=== PATIENT | male | born 1940 | race Caucasian/White ===

== ENCOUNTER 2024-01-11 11:51 | Emergency (ER) | payer MEDICARE, OTHER, SELFPAY ==
[2024-01-11 12:13] VITALS: BP 147/66; PULSE 73; RESP 18; TEMP 36.8; O2SAT 99; BMI 24.7
--- NOTE | 2024-01-11 12:13 | ED_ITS ---
HPI - General Adult General Chief complaint: Urogenital-Male Stated complaint: BLANCAS CATH INFECTION Time Seen by Provider: 01/11/24 12:12 Source: patient and EMS Mode of arrival: EMS Limitations: other (patient has a history of dementia) History of Present Illness ED Provider: Kelly Quintanilla PA-C HPI narrative: Patient is an 83 year old assigned male at with a history of BPH (with blancas catheter in place), and dementia, presenting to the emergency department today with a stuck retracted foreskin. [facility] staff states that over the last 2 days the patient's penile foreskin has been stuck in the retracted position and they have not been able to unretract it. Patient denies any dizziness, lightheadedness, abdominal pain, nausea, vomiting, fever, chills, blurry vision, double vision, loss of vision, chest pain, difficulty breathing, shortness of breath, back pain, night sweats, pain with urination, increased urinary frequency, increased urinary urgency, blood in his urine or stool, syncope or a near syncopal episode, recent trauma or falls, bowel incontinence, bladder incontinence, or any other complaints at this time. Onset (ago): day(s) (2) Relieving factors: none Exacerbating factors: none Associated symptoms: denies other symptoms Treatments prior to arrival: none Related Data Allergies Allergy/AdvReac Type Severity Reaction Status Date / Time No Known Allergies Allergy Verified 01/11/24 12:15 Review of Systems 2 Constitutional: Constitutional: Reports no additional constitutional complaints, Denies chills, Denies fever(s) and Denies night sweats Eyes: Eyes: Reports no additional eye complaints, Denies blurry vision, Denies change in vision, Denies diplopia, Denies eye discharge, Denies loss of vision and Denies eye pain ENT: Denies dizziness Cardiovascular: Cardiovascular: Reports no additional cardiovascular complaints, Denies chest pain, Denies lightheadedness, Denies Loss of Consciousness and Denies dyspnea Respiratory: Respiratory: Reports no additional respiratory complaints and Denies dyspnea Gastrointestinal: Gastrointestinal: Reports no additional gastrointestinal complaints, Denies abdominal pain, Denies melena, Denies hematochezia, Denies change in bowel habits and Denies change in stool character Genitourinary: Genitourinary: Reports no additional male genitourinary complaints Comments: blancas catheter, penile swelling Musculoskeletal: Musculoskeletal: Reports no additional musculoskeletal complaints, Denies numbness and Denies tingling Neurologic: Denies dizziness, Denies loss of vision, Denies numbness and Denies tingling Psychiatric: Psychiatric: Reports no additional psychiatric complaints Endocrine: Endocrine: Reports no additional endocrine complaints Hematologic/Lymphatic: Hematologic/Lymphatic: Reports no additional hematologic/lymphatic complaints Allergic/Immunologic: Allergic/Immunologic: Reports no additional allergic/immunologic complaints PMFSH Past Medical History Attestation statement: The following information was validated with the patient. (all information validated with the patient's daughter) Source: old records reviewed, obtained from family (patient's daughter provided additional history and confirmed the history provided by the patient), nursing notes reviewed and other ([facility] staff provided additional history and confirmed the history provided by the patient) Social History Social History Advance Directives: Yes Advance Directives Information Provided: Yes Advance Directives on File: No Physical Exam ED Vital Signs: Vital Signs - 24 hr 01/11/24 12:13 Temperature 98.3 F Pulse Rate 73 Respiratory Rate 18 Blood Pressure 147/66 H Pulse Oximetry 99 Oxygen Delivery Method Room Air BMI result Body Mass Index 24.7 Const General: cooperative, no acute distress, alert and awake Nutritional Appearance: well nourished Orientation/consciousness: oriented to person and oriented to place Limitations: no limitations HENMT Head: Yes normal to inspection and Yes atraumatic Ears: hearing grossly normal bilaterally and external ears normal General nose exam: Normal external nose present, no nasal discharge noted and no epistaxis Face and sinus: Yes normal facial exam, No abrasion and No laceration Mouth: Normal oral and palatal mucosa present, no drooling and no muffled voice Eyes General: appearance normal, both eyes and all related structures Periorbital: periorbital findings normal Eyelids: Yes eyelids normal Conjunctivae: conjunctivae normal Pupils: Equal, round and reactive pupils present EOM: EOMs intact bilaterally Neck Neck: Yes normal visual inspection, Yes full ROM and Yes no lymphadenopathy Chest Chest palpation & inspection: normal inspection of the chest Resp Effort & Inspection: normal respiratory effort and able to speak in complete sentences GI Inspection: Yes normal to inspection Other: Neuro General: oriented to person, oriented to place and moves all extremities Cranial nerves: Yes Equal, round and reactive pupils present Cognition (Neuro): normal cognition Extrem General: Yes normal to inspection, Yes full ROM and Yes capillary refill normal Psych Appearance: grossly normal Mental Status: mental status grossly normal Affect: normal affect Attitude: cooperative Thought process: Normal thought process present Thought content: Normal thought content present Insight: Good insight present (Psych) Medical Decision Making Medical Decision Making MDM Narrative: Patient is an 83 year old assigned male at with a history of BPH and dementia, presenting to the emergency department today with penile swelling. Patient's physical exam was as noted in the physical exam portion of this note. I explained my physical exam findings to the patient and the patient's daughter. I answered all questions asked by the patient and the patient's daughter. Dr. Nair evaluated the patient and was able to unretract the penile foreskin, without incident. I stressed the importance of the patient taking his medication as directed (either prescribed or as the over the counter packaging recommends). I stressed the importance of the patient following up with his primary care provider. I stressed the importance of the patient returning to the emergency department immediately if his symptoms were to return or if he were to develop any dizziness, shortness of breath, difficulty breathing, chest pain, blurry vision, loss of vision, nausea, vomiting, abdominal pain, fever, chills, back pain, or any other complaints. Patient and the patient's daughter verbalized agreement and understanding with this treatment plan and discharge. Differential Diagnosis Differential Diagnoses: The differential diagnosis associated with the presentation includes Paraphimosis Admission/Observation Consideration of admission/observation: Escalation of care including admission/observation considered Patient would have been admitted to the hospital had his clinical presentation warranted hospital admission. Consult Healthcare Provider Management of the patient was discussed with: [employer] (spoke to the urologist president educational institution as noted in the MDM Rationale portion of this note.) Independent Historian Clinical information obtained from an independent historian. History obtained from or confirmed by: EMS (EMS provided additional history and confirmed the history provided by the patient.) and Other (Patient's daughter provided additional history and confirmed the history provided by the patient.) Discharge Plan Discharge Clinical Impression: Paraphimosis Patient Disposition: Home, Self-Care Instructions: Acute Paraphimosis (ED) Additional Instructions: Your care staff must unretract/replace your foreskin when cleaning / changing your blancas. Follow up with your primary care provider. Return to the emergency department immediately if your symptoms worsen or if you develop any dizziness, shortness of breath, difficulty breathing, chest pain, blurry vision, loss of vision, nausea, vomiting, abdominal pain, fever, chills, back pain, or any other complaints. Referrals: Nilton Spears MD [Primary Care Provider] - Print Language: Indian
[2024-01-11 12:32] VITALS: BP 124/70; PULSE 63; O2SAT 100
[2024-01-11] MEDS: Lidocaine HCl 1 % MPF 5 ML VIAL 20 ML SUBCUT (13:37)
[2024-01-11 16:39] VITALS: BP 138/61; PULSE 80; RESP 18; TEMP 36.8; O2SAT 95
[2024-01-11 17:20] VITALS: BP 138/61; PULSE 80; RESP 18; TEMP 36.8; O2SAT 95
--- NOTE | 2024-01-11 20:17 | P.CNUR_ITS ---
History of Present Illness Consult details Consult date: 01/11/24 Narrative: Called to evaluate due to paraphimosis. Pt has pérez in place Review of Systems Review of Systems: Yes all other systems are reviewed and are negative Constitutional: Constitutional: Reports no additional constitutional complaints Eyes: Eyes: Reports no additional eye complaints ENT: Reports system reviewed and no additional complaints, except as documented Cardiovascular: Cardiovascular: Reports no additional cardiovascular complaints Respiratory: Respiratory: Reports no additional respiratory complaints Gastrointestinal: Gastrointestinal: Reports no additional gastrointestinal complaints Genitourinary: Genitourinary: Reports as per HPI Musculoskeletal: Musculoskeletal: Reports no additional musculoskeletal compla ints Integumentary/Breasts: Skin/Breast: Reports system reviewed and no additional complaints, except as docu Neurologic: Reports system reviewed and no additional complaints, except as documented Psychiatric: Psychiatric: Reports no additional psychiatric complaints Endocrine: Endocrine: Reports no additional endocrine complaints Hematologic/Lymphatic: Hematologic/Lymphatic: Reports no additional hematologic/lymphatic complaints Allergic/Immunologic: Allergic/Immunologic: Reports no additional allergic/immunologic complaints Meds Allergies Allergy/AdvReac Type Severity Reaction Status Date / Time No Known Allergies Allergy Verified 01/11/24 12:15 Physical Exam Vital Signs: Vital Signs: Last Vital Signs Temp 98.2 F 01/11/24 17:20 Pulse 80 01/11/24 17:20 Resp 18 01/11/24 17:20 BP 138/61 01/11/24 17:20 Pulse Ox 95 01/11/24 17:20 O2 Del Method Room Air 01/11/24 17:20 BMI result Body Mass Index 24.7 Const: General: no acute distress and well developed Orientation/consciousness: patient oriented x3 HEENT: Head: Yes normocephalic and Yes atraumatic Eyes: Conjunctivae: conjunctivae normal Neck: Neck: Yes normal visual inspection Chest: Chest palpation & inspection: normal inspection of the chest Resp: Effort & Inspection: normal respiratory effort Cardio: Rate: regular rate GI: Inspection: Yes normal to inspection Palpation (GI): Soft to palpation : Penis: uncircumcised and paraphimosis Scrotum: scrotum normal Neuro: General: patient oriented x3 Psych: Appearance: grossly normal Affect: normal affect Results Labs Labs: All other labs normal. Assessment and Plan (1) Chronic indwelling Pérez catheter: Status: Acute (2) Urinary retention: Status: Acute (3) Dementia: Status: Acute (4) Paraphimosis: Status: Inactive (5) Redundant foreskin: Status: Acute Plan Cont pérez Paraphimosis reduced Procedures Date of Service Date of Service: 01/11/24 Penile Procedure Time out performed: Yes Indication: paraphimosis Local anesthesia used: penile nerve block Amount of anesthesia used (ml): 15 Reduction of paraphimosis: manual pressure Patient tolerated procedure: well and no complications
== END 2024-01-11 17:20 | disposition home or self-care (01) ==
PROVIDERS: Emergency Provider Student in an Organized Health Care Education/Training Program; PCP Family Medicine
DX: N47.2 Paraphimosis (principal); Z96.0 Presence of urogenital implants
CPT/HCPCS: 96372; 99282; 99284

== ENCOUNTER → 2024-01-11 12:28 | Outpatient (BNV) | payer MEDICARE, OTHER, SELFPAY | PROVIDERS: Emergency Provider Student in an Organized Health Care Education/Training Program; PCP Family Medicine; Visit Provider Urology | DX: N47.2 Paraphimosis (principal); R33.9 Retention of urine, unspecified; Z96.0 Presence of urogenital implants; F03.90 Unspecified dementia, unspecified severity, without behavioral disturbance, psychotic disturbance, mood disturbance, and anxiety | CPT/HCPCS: 54450; 99282 ==

== ENCOUNTER 2024-04-30 10:36 | Outpatient (REF) | payer MEDICARE, OTHER, SELFPAY ==
--- NOTE | ~2024-04-30 | FL_ITS ---
EXAMINATION: Modified Barium Swallow CLINICAL INFORMATION: Dysphagia COMPARISON: None TECHNIQUE: Modified barium swallow was performed under lateral fluoroscopy with patient in standing position. Barium mixed with solids and liquids of different consistencies was administered by the speech pathologist. Examination was recorded in the fluoroscopy suite. FINDINGS: Laryngeal penetration was seen with multiple consistencies of barium. No tracheal aspiration observed. Please refer to speech therapy report for further details. Mild cricopharyngeal achalasia is present. FLUOROSCOPY TIME: 2 minutes 26 seconds Number of Spot Images: N/A DOSE AREA PRODUCT: 1195 uGy-m2 (microgray-meter squared) FL/FL Modified Barium Swallow IMPRESSION: 1. Laryngeal penetration with multiple consistencies of barium. No subglottic aspiration was observed. 2. Mild cricopharyngeal achalasia. Refer to the speech therapy report for further clarification This procedure was performed by Mehdi Myles PA-C, and supervised by Dr. Reynolds Electronically signed by: David Reynolds MD 04/30/2024 04:16 PM [facility] [place]
--- NOTE | 2024-05-05 15:13 | MHC.SL.IMP ---
Date of Plan of Treatment: 04/30/24 Onset of Symptoms/Illness: 04/08/24 Date Treatment Started: 04/30/24 Admitting Diagnosis: R/o aspiration Primary Speech & Language Diagnosis: R13.12 Oropharyngeal Phase Dysphagia Reason for Today's Visit: R/o aspiration Pre-evaluation Dietary Consistencies: Regular Pre-evaluation Liquid Consistency: Thin Pre-evaluation Medication Administration: Crushed with Puree Medical History: Anemia CKD Dysphagia, Pharyngeal phase GERD MDD Weakness Obstructive and reflux uropathy Anxiety Difficulty walking Hypothyroidism MCI Assistance with ADLs Afib Oral Motor Exam Facial Symmetry: Normal for Patient Symmetrical Oral Expression Ability: Moderate Impairment Is patient able to manage secretions?: Yes Is patient able to produce volitional cough?: Yes Food and Liquid Trials: Oral Impairment: Lip Closure: Did not test Oral Impairment: Tongue Control During Bolus Hold: 1=Escape to lateral buccal cavity/floor of mouth (FOM) Oral Impairment: Bolus Preparation/Mastication: 1=Slow prolonged chewing/mashing with complete re-collection Oral Impairment: Bolus Transport/Lingual Motion: 2=Slowed tongue motion Oral Impairment: Oral Residue: 2=Residue collection on oral structures Oral Impairment:Initiation of Pharyngeal Swallow: 0=Bolus head at posterior angle of ramus (first hyoid excursion) Pharyngeal Impairment: Soft Palate Elevation: 1=Trace column of contrast or air between SP and PW Pharyngeal Impairment: Laryngeal Elevation: 1=Partial thyroid cartilage/arytenoids to epiglottic petiole movement Pharyngeal Impairment: Anterior Hyoid Excursion: 1=Partial anterior movement Pharyngeal Impairment: Epiglottic Movement: 0=Complete inversion Pharyngeal Impairment: Laryngeal Vestibular Closure:: 1=Incomplete: narrow column air/contrast in laryngeal vestibule Pharyngeal Impairment: Pharyngeal Stripping Wave: 0=Present: complete Pharyngeal Impairment: Pharyngeal Contraction: Did not test Pharyngeal Impairment: Pharyngoesophageal Segment Openin=Partial distention/partial duration: partial obstruction of flow Pharyngeal Impairment: Tongue Base (TB) Retraction: 2=Narrow column of contrast/air between TB and posterior PW Pharyngeal Impairment: Pharyngeal Residue: 2=Collection of residue within or on pharyngeal structures Pharyngeal Impairment: Esophageal Clearance Upright Position: Did not test Impressions and Recommendations Clinical Observations: Time-out: performed at 10:30 Evaluation Start: 10:35; Stop: 10:55 Patient Positioning: Seated 70-90 degrees Viewing Planes: LATERAL ONLY Contrast: MBSImP? Standardized Protocol using commercially prepared, standardized Barium viscosities, including: Varibar? THIN LIQUID (40% w/v, <15 cps) , Varibar? PUDDING (40% w/v, <3925-3456 cps) , 1/2 Shortbread Cookie (1 x1 x.25 ) [facility] ID: [id number] [facility] Results: Lip closure for intraoral bolus containment could not be assessed due to logistical reasons not related to physiologic impairment. Tongue control during bolus hold maintained a cohesive bolus held between tongue to palate seal. Bolus preparation and mastication resulted in slow, prolonged chewing/mashing but with complete re-collection. Bolus transport/lingual motion demonstrated delayed initiation of tongue motion. Oral residue was a collection on oral structures. Initiation of the pharyngeal swallow occurred as the bolus head was at the posterior laryngeal surface of the epiglottis. Soft palate elevation resulted in no bolus between the soft palate and the pharyngeal wall. Laryngeal elevation was decreased, with partial superior movement of the thyroid cartilage/partial approximation of the arytenoids to the epiglottic petiole. Anterior hyoid excursion demonstrated partial anterior movement. Epiglottic movement resulted in complete inversion. Laryngeal vestibular closure was incomplete, with a narrow column of air/contrast noted within the laryngeal vestibule at the height of the swallow. Pharyngeal stripping wave was present and complete. Pharyngeal contraction could not be determined due to logistical reasons not related to physiologic impairment. Pharyngoesophageal segment opening demonstrated partial distension/partial duration, with partial obstruction of bolus flow. Tongue base retraction allowed a narrow column of contrast or air between the retracted tongue base and the posterior pharyngeal wall. Pharyngeal residue was a collection of residue within or on pharyngeal structures. Esophageal clearance in the upright position could not be assessed due to logistical reasons not related to physiologic impairment. Oral Impairment Score: 6 (absence of score, component 1) Pharyngeal Impairment Score: 8 (absence of score, component 13) Esophageal Impairment Score: --- (absence of score, component 17) Laryngeal Penetration and Aspiration: Penetration was observed in today's study. Cookie, [place]-thick, Thin Contrast entered the airway, contacted the vocal folds, and were ejected from the airway. Thin Contrast entered the airway, contacted the vocal folds, and was not ejected from the airway. ASSESSMENT: The patient's performance in today's study indicated impairment in swallowing as outlined in the table below: Laryngeal elevation, Epiglottic movement, Laryngeal vestibular closure, and Tongue base retraction contributed to penetration and pharyngeal residue. SUMMARY: Pt demonstrated a consistent pattern of coating along the anterior laryngeal vestibule. The coating was not removed spontaneously by secondary swallow or reflexive cough. When FLOOR WORKER cued to clear his throat, this removed contrast from the airway. [place]-Thick Liquids made the coating mildly worse, but was clear with throat clear. Chin tuck was mild successful in reducing penetration, however he still needed to be cued to clear his throat. Regular solid (cookie coated in contrast) resulted in significant oral residue in the vallecular space that subsequently resulted in laryngeal coating needing cues to clear. PLAN: Intake Recommendations: Route: PO Diet Grade: IDDSI Levels: 6-Soft & Bite-Sized Liquid Consistencies: IDDSI Levels: 0-Thin Post-Study Functional Oral Intake Scale (FOIS): 6- Total oral intake with no special preparation, but must avoid specific foods or liquid items Recommendations: Recommend Pt work with his in-house FLOOR WORKER to adjusted Solid foods accordingly based on the availability in the cafeteria. A texture consistent with IDDSI Level 6 ? Soft & Bite-Sized would be appropriate based on today?s results. Use of [place]-Thick Liquids or Chin Tuck did not reduce his anterior laryngeal vestibular coating. Only throat clearing after sips of liquids were successful. Therapy Recommendations: Therapy will be continued The following compensatory strategies and/or therapeutic exercises will be part of the upcoming therapy/management plan: Throat Clear No Straws Effortful Swallow Prognosis for Improvement: The prognosis for the patient to meet nutritional needs by mouth is good based on degree of impairment, stimulability for treatment, level of motivation, support system. Patient's Personal Goals: Safest, least restrictive diet. Penitentiary Goals: ? The patient will tolerate the least restrictive diet with a safe/efficient swallow to maintain adequate nutrition and hydration. ? The patient will demonstrate improved swallowing function via repeat clinical evaluation, videoendoscopy/videofluoroscopy and/or patient self-rating scores. ? The patient and/or family will participate in further education for swallowing goals. Short Term Goals: ? Diet - The patient will tolerate a regular diet with thin liquids, full liquids without signs or symptoms of penetration/aspiration 90% of the time. ? Guidelines - The patient will comply with/recall the following guidelines/strategies 90% of the time with moderate cuing: Bolus Volume Change, Rate of Ingestion Change, Additional Swallow(s) per Bolus, Throat Clear, No Straws. ? Independent Home Exercise ? Structured Therapy - The patient will demonstrate 90% accuracy and require moderate cuing in structured swallowing therapy with the FLOOR WORKER using the following exercises/therapy approaches and therapy assisted devices: Effortful Swallow, . ? Education - The patient, family, caregiver will verbalize/demonstrate understanding of the results of this evaluation, the above recommendations, and the swallowing guidelines. Liquid Intake Recommendation: Thin Liquid Intake Strategies: Small Sips No Straws Double Swallow Dietary Recommendations: Chopped/Advanced (NDD3) Medication Administration: Whole with Puree Please contact the pharmacy regarding appropriate crushable or liquid drug formulations that are available whenever modified delivery is recommended. Compensatory Strategies Recommended: Sitting Upright (90 deg) No Straw Small Bites and Sips Alternate Liquids/Solids Supervision during eating and or drinking: Total Supervision (1:1) Recommended Treatments: Oral Motor Exercises Compens. Strategy Educat. Recommendation for Speech Therapy: Speech Therapy through Rehab Facility Text Comment: It is important to note MBSS objective studies are snapshots in time and Patient function might vary with factors such as time of day or concomitant medical conditions. For this reason, the final treatment plan for this patient should rest with their medical care team. Additional recommendations should be considered with the totality of the Patient in mind. Thank for the opportunity to participate in the care of this patient. If you have any questions about the content of this report, please contact the [facility] at [facility]. Education: Education regarding findings from today's study and plans for therapy were provided to Patient and family/caregiver through Verbal Instruction, Written Instruction. Understanding was expressed by the Patient and family/caregiver. Frequency/Duration: At the discretion of his treating FLOOR WORKER. Timeline to reassess: PRN Revenue Collector Clinician/Clinical Fellow: No Supervisory Statement: N/A Speech Language Pathologist: Aurelio Dalal M.A., [facility]-FLOOR WORKER
== END 2024-04-30 10:37 | disposition home or self-care (01) ==
LOC: HO.XRAY 10:36
PROVIDERS: Visit Provider Internal Medicine
DX: Z13.89 Encounter for screening for other disorder (principal)
CPT/HCPCS: 74230

== ENCOUNTER → 2024-04-30 10:39 | Outpatient (BNV) | payer MEDICARE, OTHER, SELFPAY | PROVIDERS: Visit Provider Physician Assistant Surgical | DX: R13.10 Dysphagia, unspecified (principal) | CPT/HCPCS: 74230 ==

== ENCOUNTER 2025-03-03 08:08 | Emergency (ER) | payer MEDICARE, OTHER, SELFPAY ==
[2025-03-03 08:14] VITALS: BP 120/68; PULSE 83; O2SAT 98
[2025-03-03 08:29] VITALS: BP 135/63; PULSE 100; RESP 20; TEMP 36.7; O2SAT 95; BMI 23.9
--- NOTE | 2025-03-03 08:53 | ED_ITS ---
HPI - Male Genitourinary General Chief complaint: Urogenital-Male Stated complaint: FORESKIN PAIN AND SWELLING Source: patient, family and EMS Mode of arrival: EMS Limitations: other (poor historian) History of Present Illness ED Provider: JULIO HICKS Narrative: 84 yo male with PMH of CKD, anemia, ataxia, afib, dementia, PAD, UTI, chronic indwelling pérez catheter he is DNR/DNI, do not transfer unless for comfort who had his pérez changed at 1230am unclear why and they RN did not retract his foreskin over the glans after procedure. Now the glans is swollen. He is still draining urine. He states it irritates him a little but otherwise no sig pain. This has happened before at [facility]. MD Complaint: other Onset (ago): hour(s) (1230am today) Duration: improved Location: penis Radiation: penis Severity: mild Quality: dull Relieving factors: none Exacerbating factors: none Context: other Associated symptoms: Reports denies other symptoms Related Data Allergies Allergy/AdvReac Type Severity Reaction Status Date / Time No Known Allergies Allergy Verified 03/03/25 08:32 Review of Systems Review of Systems: ROS unable to be obtained due to altered mental status PMFSH Past Medical History Attestation statement: The following information was validated with the patient. Source: old records reviewed Medical History Afib Redundant foreskin Chronic indwelling Pérez catheter Social History Social History (Updated 03/03/25 @ 09:13 by Michelle Moran DO) Patient Tobacco Use Status: Tobacco use Unknown Physical Exam Vital Signs: Vital Signs: Last Vital Signs Temp 98.1 F 03/03/25 08:29 Pulse 100 03/03/25 08:29 Resp 20 03/03/25 08:29 BP 135/63 03/03/25 08:29 Pulse Ox 95 03/03/25 08:29 O2 Del Method Room Air 03/03/25 08:29 BMI result Body Mass Index 23.9 Appearance: Alert. Oriented X to person and place. No acute distress. Eyes: Pupils equal, round and reactive to light. ENT: Pharynx normal. Neck: Normal inspection. Neck supple. CVS: Normal heart rate and rhythm. Pulses normal. Respiratory: No respiratory distress. Breath sounds normal. Abdomen: Soft and nontender. : foreskin retracted, gland swollen, clear yellow urine noted in tubing Skin: Skin warm and dry. Normal skin color. Extremities: No lower extremity edema. Neuro: Oriented X 2. No motor deficit. Medical Decision Making Medical Decision Making [facility] Narrative: 76 yo male with PMH of HTN, afib, HLD, DM2, afib on xarelto here with c/o pérez placed 1230am but they never retracted the foreskin at this time Dr. Barron happened to be in the ED he was able to reduce the phimosis - recheck reassuring, clear yellow urine, no issues, stable for DC. updated Migdalia his HCP Differential Diagnosis Differential Diagnoses: The differential diagnosis associated with the presentation includes phimosis Admission/Observation Consideration of admission/observation: Escalation of care including admission/observation considered retracted by Dr. Barron Urology at bedside recheck normal no acute issues Consult Healthcare Provider Management of the patient was discussed with: Radiologic Technologist Chief Independent Historian Clinical information obtained from an independent historian. History obtained from or confirmed by: EMS External Record Review External record reviewed: Outpatient record Discharge Plan Discharge Clinical Impression: Phimosis of penis Patient Disposition: Home, Self-Care Instructions: Phimosis (ED) Additional Instructions: foreskin retracted by our Urologist no issues please monitor for increased swelling, redness, bleeding, unable to urinate notified HCP Migdalia of visit and plan Print Language: [place]
[2025-03-03 10:00] VITALS: BP 110/77; PULSE 79; TEMP 36.9; O2SAT 95
--- OUTSIDE RECORDS SUMMARY | 2025-03-03 10:22 | XMS_ITS | Encounter Summary ---
Author Organization [facility] Address [address] [place] [address] Phone Care Team Providers Care Finishing Inspector Name Role Phone Ashely Tovar MD Primary Care Provider [phone] Ashely Tovar MD Unavailable [phone] Jose Schulte OT Unavailable Rosamaria Gunderson MD Unavailable [phone] Cedrick Giles DO Unavailable Nirav Razo MD Primary Care Provider Alexus Gandhi Primary Care Provider [phone] Alexus Gandhi Unavailable [phone] Brissa Díaz OT Unavailable [phone] Rosamaria Gunderson MD Unavailable [phone] Encounter Details Date Type Department Care Team (Late st Contact Info) Description 09/23/2020 Procedure Pass [facility], Ct Scan - [address] [address] Social History Tobacco Use Types Packs/Day Years Used Date Smoking Tobacco: Never Smokeless Tobacco: Never Alcohol Use Standard Drinks/Week Comments Yes 2 (1 standard drink = 0.6 oz pur e alcohol) even less now Sex and Gender Information Value Date Recorded Sex Assigned at Male 07/09/2020 3:06 PM EST Legal Sex Male 7:14 PM EST Gender Identity Male 07/09/2020 3:06 PM EST Sexual Orientation Not on file 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 Date 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 Not on file Not on file No t on file documented as of this encounter Plan of Treatment Not on file documented as of this encounter Visit Diagnoses Not on filedocumented in this encounter Additional Health Concerns Infection Onset Date Last Indicated Resolved Time CoV-Risk Comment:Per note documentation 12/22/2023 12/22/2023 12:38 PM EDT Assessment Noted Time PHQ-2 Depression Total Score: 5 08/19/19 19 1:39 PM EST documented as of this encounter Care Teams Finishing Inspector Relationship Specialty Start Date End Date Ashely Tovar MD [email or web address] PCP - General Family Medicine 08/19/18 09/12/22 Nirav Razo MD [address] [place] [address], [facility] [address] [place] [address] [email or web address] PCP - General Family Medicine 09/13/22 04/26/23 Alexus Gandhi [address] [place] [address], [address] [place] [address] [email or web address] PCP - General Family Medicine 04/27/23 Ashely Tovar MD [address] [place] [address] [email or web address] Insurance Assigned Provider 10/01/19 09/02/22 Jose Schulte, OT [address] [place] [address] [email or web address] Transitions Second CutterNuclear Medicine Tech Therapy 09/22/2009/26/20 Rosamaria Gunderson MD [address] [place] [address] [email or web address] Consulting Provider Geriatric Medicine 12/29/21 Cedrick Giles DO [address] [place] [address], [address] [place] [address] Insurance Assigned Provider 09/02/22 09/29/23 Alexus Gandhi [address] [facility], [address] [place] [address] [email or web address] Insurance Assigned Provider 09/29/23 Brissa Díaz, OT [address] [place] [address] [email or web address] Transitions Second CutterNuclear Medicine Tech Therapy 12/24/2301/30/24 Rosamaria Gunderson MD [address] [place] [address] Geriatric Medicine 04/28/24 documented as of this encounter Additional Source Comments The information contained in this document represents components of the legal health record. It is not the complete legal health record.[facility]
--- OUTSIDE RECORDS SUMMARY | 2025-03-03 10:22 | XMS_ITS | Encounter Summary ---
Author Organization [facility] Address [address] [place] [address] Phone Care Team Providers Care Cellular Biologist Name Role Phone Rosamaria Gunderson MD Unavailable [phone] Alexus Gandhi Primary Care Provider Alexus Gandhi Unavailable [phone] Rosamaria Gunderson MD Unavailable [phone] Encounter Details Date Type Department Care Team (Late st Contact Info) Description 03/20/2024 Procedure Pass [facility] Admitting Dept Virtual Department [address] [place] [address] Social History Tobacco Use Types Packs/Day Years Used Date Smoking Tobacco: Never Smokeless Tobacco: Never Alcohol Use Standard Drinks/Week Comments Yes 2 (1 standard drink = 0.6 oz pur e alcohol) Very rarely Home Health Assessment: Transportation Answer Date Recorded Lack of Transportation (Medical) No 05/11/2023 Lack of Transportation (Non-Medical) No 05/11/2023 Patient Unable or Declines to Respond No 05/11/2023 Education Answer Date Recorded Are you interested in more education? Not on rohith e 10/19/2022 Are you concerned about learning? Not on file 10/19/2022 No 10/19/2022 No 10/19/2022 Food Answer Date Recorded Within the past 6 months we worried whether our food would run out before we got money to buy more. Never True 12/22/2023 Within the past 6 months the food we bought just didn't last and we didn't have enough money to get more. Never True Residential Stability Answer Date Recor ded What is your housing situation today? I have parminder thorne 12/22/2023 How many times have you move d in the past 12 months? Zero (I did not move) 12/22/2023 Paying for Meds Answer Date Recorded Do you have trouble paying for medicines? No 12/22/2023 Paying Utility Bills Answer Date Record ed Do you have trouble paying your heating or elect ricity bill? No 12/22/2023 Transportation Answer Date Recorded Has the lack of transportati on kept you from medical appointments or from getting medications? No 12/22/2023 Digital Access Answer Date Recorded No 12/22/2023 Yes 12/22/2023 Do you have reliable internet access at home? Ye s 12/22/2023 Do you have a device (e.g., phone, tablet, computer) with a working camera? Yes 12/22/2023 Intimate Partner Violence Answer Date R ecorded Are you denied basic needs s uch as food, clothing, or medical care? No 12/22/2023 In the past 12 months have y ou been in a relationship with a person who hurts, threatens, or tries to control you? No 12/22/2023 Are you denied basic needs s uch as food, clothing, or medical care? No 12/22/2023 In the past 12 months have y ou been in a relationship with a person who hurts, threatens, or tries to control you? 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 Not on file Not on file No t on file documented as of this encounter Plan of Treatment Not on file documented as of this encounter Visit Diagnoses Not on filedocumented in this encounter Additional Health Concerns Assessment Noted Time PHQ-9 Depression Total Score: 11 11/02/2 022 2:53 PM EDT PHQ-2 Depression Total Score: 2 04/27/20 23 3:35 PM EDT documented as of this encounter Care Teams Cellular Biologist Relationship Specialty Start Date End Date Alexus Gandhi [address] [place] [address], [address] [place] [address] [email or web address] PCP - General Family Medicine 04/27/23 Rosamaria Gunderson MD Consulting Provider Geriatric Medicine 12/29/21 Alexus Gandhi [address] [place] [address], [address] [place] [address] [email or web address] Insurance Assigned Provider 09/29/23 Rosamaria Gunderson MD Geriatric Medicine 04/28/24 documented as of this encounter Additional Source Comments The information contained in this document represents components of the legal health record. It is not the complete legal health record.[facility]
--- OUTSIDE RECORDS SUMMARY | 2025-03-03 10:22 | XMS_ITS | Encounter Summary ---
Author Organization [facility] Address [address] [place] [address] Phone Care Team Providers Care Photographic Equipment Mechanic Name Role Phone Ashely Tovar MD Primary Care Provider [phone] Ashely Tovar MD Unavailable [phone] Jose Schulte OT Unavailable Rosamaria Gunderson MD Unavailable [phone] Cedrick Giles DO Unavailable Nirav Razo MD Primary Care Provider [phone] Alexus Gandhi Primary Care Provider [phone] Alexus Gandhi Unavailable [phone] Brissa Díaz OT Unavailable [phone] Rosamaria Gunderson MD Unavailable [phone] Encounter Details Date Type Department Care Team (Late st Contact Info) Description 09/21/2020 Procedure Pass [facility] [place], Ct Scan - [address] [address] Social History Tobacco Use Types Packs/Day Years [...] Job Start Date Job End Date 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 Wish to be (Past 1 Month) No 021 2:23 PM EDT Yolanda Lilly RN 2. Non-Specific Active Suici david Thoughts (Past 1 Month) No 09/21/2020 2:23 PM EDT Yolanda Lilly RN 6. Suicidal Behavior (Lifetime) No 2:23 PM EDT Yolanda Lilly RN documented as of this encounter Plan of Treatment Not on file documented as of this encounter Visit Diagnoses Not on filedocumented in this encounter Additional Health Concerns Infection Onset Date Last Indicated Resolved Time CoV-Risk Comment:Per note documentation 12/22/2023 12/22/2023 4 12:38 PM EDT Assessment Noted Time PHQ-2 Depression Total Score: 5 08/19/19 19 1:39 PM EST documented as of this encounter Care Teams Photographic Equipment Mechanic Relationship Specialty Start Date End Date Ashely Tovar MD [email or web address] PCP - General Family Medicine 08/19/18 09/12/22 Nirav Razo MD [address] [place] [address], [address] [place] [address] [email or web address] PCP - General Family Medicine 09/13/22 04/26/23 Alexus Gandhi [address] [place] [address], [address] [place], [place] [id number] [email or web address] PCP - General Family Medicine 04/27/23 Ashely Tovar MD [address] [place] [address] [email or web address] Insurance Assigned Provider 10/01/19 09/02/22 Jose Schulte, OT [address] [place] [address] [email or web address] Transitions Web User Experience StrategistIp Architect Therapy 09/22/2009/26/20 Rosamaria Gunderson MD [address] [place] [address] [email or web address] Consulting Provider Geriatric Medicine 12/29/21 Cedrick Giles DO [address] [place] [address], [address] [place] [address] [email or web address] Insurance Assigned Provider 09/02/22 09/29/23 Alexus Gandhi [address] [place] [address], [address] [place] [address] [email or web address] Insurance Assigned Provider 09/29/23 Brissa Díaz, OT [address] [place] [address] Transitions Web User Experience StrategistIp Architect Therapy 12/24/2301/30/24 Rosamaria Gunderson MD [address] [place] [address] [email or web address] Geriatric Medicine 04/28/24 documented as of this encounter Additional Source Comments The information contained in this document represents components of the legal health record. It is not the complete legal health record.[facility]
--- OUTSIDE RECORDS SUMMARY | 2025-03-03 10:22 | XMS_ITS | Encounter Summary ---
Author Organization [facility] Address [address] [place] [address] Phone Care Team Providers Care Agricultural Education Teacher Name Role Phone Ashely Tovar MD Primary Care Provider [phone] Ashely Tovar MD Unavailable [phone] Joes Schulte OT Unavailable Rosamaria Gunderson MD Unavailable [phone] Cedrick Giles DO Unavailable Nirav Razo MD Primary Care Provider [phone] Alexus Gandhi Primary Care Provider [phone] Alexus Gandhi Unavailable [phone] Brissa Díaz OT Unavailable [phone] Rosamaria Gunderson MD Unavailable [phone] Encounter Details Date Type Department Care Team (Late st Contact Info) Description 09/22/2020 Procedure Pass [facility], [address] [address] Social History Tobacco Use Types Packs/Day Years [...] Job Start Date Job End Date 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 PCP - General Family Medicine 04/27/23 Ashely Tovar MD [address] [place] [address] [email or web address] Insurance Assigned Provider 10/01/19 09/02/22 Jose Schulte, OT [address] [place] [address] [email or web address] Transitions Pattern MolderWire Weaver Therapy 09/22/2009/26/20 Rosamaria Gunderson MD [address] [place] [address] [email or web address] Consulting Provider Geriatric Medicine 12/29/21 Cedrick Giles DO [address] [place] [address], [address] [place] [address] [email or web address] Insurance Assigned Provider 09/02/22 09/29/23 Alexus Gandhi [facility] [place] [address] [email or web address] Insurance Assigned Provider 09/29/23 Brissa Díaz, OT [address] [place] [address] [email or web address] Transitions Pattern MolderWire Weaver Therapy 12/24/2301/30/24 Rosamaria Gunderson MD [address] [place] [address] Geriatric Medicine 04/28/24 documented as of this encounter Additional Source Comments The information contained in this document represents components of the legal health record. It is not the complete legal health record.[facility]
--- OUTSIDE RECORDS SUMMARY | 2025-03-03 10:22 | XMS_ITS ---
Author Organization [facility] Care Team Providers Care Food Aide Name Role Phone Geneva Ulloa Unavailable Unavailable Nilton Spears Unavailable Unavailable Dayna Bernard Unavailable Allergies and adverse reactions No Known Allergies Care Team Name Role Address Phone Organization Dates Nilton Spears PCP [address], [address], [facility] (Office): : [facility] 12/26/2023 - 01/23/2024 Geneva Ulloa [address], [address], [facility] 12/26/2023 - 01/23/2024 Dayna Bernard 38 [facility] [address], [place], [address], [facility] (Office): [facility] 12/26/2023 - 01/23/2024 Immunizations Immunization Status Vaccine Details Vaccine Code CodeSystem Date Notes Influenza completed Influenza, split virus, trivalent, injectable, contains preservative 141 CVX created date: 01/01/2024 administer ed date: 03/26/2023 (Shingles) Vaccine completed zoster vaccin e recombinant 187 CVX created date: 01/01/2024 administer ed date: 11/10/2013 PCV13 (Pneumococcal Conjugate)Vaccine completed pneumococcal conjugate vaccine, 13 valent lotNumber: [id number] Mfg: [facility] Given 0.5 intramuscularly 133 CVX created date: 12/30/2023 administer ed date: 11/11/2014 doseUOMN oncoded: mL TD Diphtheria/Tetanus completed tetanus and diphtheria toxoids, adsorbed, preservative free, for adult use (2 Lf of tetanus toxoid and 2 Lf of diphtheria toxoid) lotNumber: [id number] Mfg: [employer] Given 0.5 intramuscularly 09 CVX created date: 12/30/2023 administer ed date: 09/27/2021 doseUOMN oncoded: mL (COVID-19) [id number] Updated Moderna Vaccine completed SARS-COV-2 (COVID-19) vaccine, mRNA, spike protein, LNP, preservative free, 50 mcg/0.5 mL dose 312 CVX created date: 01/01/2024 administer ed date: 05/15/2023 (COVID-19) [facility] Original Primary Dose Vaccine 2 of 2 completed SARS-COV-2 (COVID-19) vaccine, mRNA, spike protein, LNP, preservative free, 30 mcg/0.3mL dose 208 CVX created date: 01/01/2024 administer ed date: 08/23/2020 (COVID-19) Pfizer Original Primary Dose Vaccine 1 of 2 completed SARS-COV-2 (COVID-19) vaccine, mRNA, spike protein, LNP, preservative free, 30 mcg/0.3mL dose 208 CVX created date: 01/01/2024 administer ed date: 08/12/2020 (COVID-19) [facility] Original Booster Vaccine completed SARS-COV-2 (COVID-19) vaccine, mRNA, spike protein, LNP, preservative free, 30 mcg/0.3mL dose 208 CVX created date: 01/01/2024 administer ed date: 10/26/2021 (COVID-19) [facility] Original Booster Vaccine completed SARS-COV-2 (COVID-19) vaccine, mRNA, spike protein, LNP, preservative free, 30 mcg/0.3mL dose 208 CVX created date: 01/01/2024 administer ed date: 04/05/2021 (COVID-19) [facility] Bivalent Vaccine completed SARS-COV-2 (COVID-19) vaccine, mRNA, spike protein, LNP, bivalent, preservative free, 30 mcg/0.3 mL dose, liu-sucrose formulation 300 CVX created date: 01/01/2024 administer ed date: 10/30/2022 (COVID-19) Pfizer Bivalent Vaccine completed SARS-COV-2 (COVID-19) vaccine, mRNA, spike protein, LNP, bivalent, preservative free, 30 mcg/0.3 mL dose, liu-sucrose formulation 300 CVX created date: 01/01/2024 administer ed date: 04/03/2022 (Pneumococcal) PPSV23- Polysaccharide 23-valent Vaccine completed pneumococcal polysaccharide vaccine, 23 valent 33 CVX created date: 01/01/2024 administer ed date: 08/24/2010 influenza, seasonal, intradermal, preservative free cancelled seasonal influenza, intradermal, preservative free 144 CVX created date: 12/30/2023 consent date: 12/30/2023 Mental Status Section Date Assessment Total Score Description 01/23/2024 BIMS 14 cognitively int act CAM 0 No delirium ind icated PHQ-9 12 moderate depres jareth 01/01/2024 BIMS 14 cognitively int act CAM 0 No delirium ind icated PHQ-9 12 moderate depres jareth Problems Problem # Description Date of onset Resolved Date Code CodeSystem Concern Status 1 ACUTE KIDNEY FAILURE, UNSPECIFIED 12/26/[address] active 2 ANEMIA, UNSPECIFIED 12/26/[address] active 3 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 12/26/[address] active 4 CHRONIC KIDNEY DISEASE, UNSPECIFIED 12/26/[address] active 5 FALL FROM OR OFF TOILET WITH SUBSEQUENT STRIKING AGAINST OBJECT, SUBSEQUENT ENCOUNTER 12/26/[address] active 6 HYPOTHYROIDISM, UNSPECIFIED 12/26/[address] active 7 MAJOR DEPRESSIVE DISORDER, SINGLE EPISODE, UNSPECIFIED 12/26/[address] active 8 OTHER LACK OF COORDINATION 12/26/[address] active 9 UNSPECIFIED ATRIAL FIBRILLATION 12/26/[address] active 10 UNSPECIFIED DEMENTIA, UNSPECIFIED SEVERITY, WITHOUT BEHAVIORAL DISTURBANCE, PSYCHOTIC DISTURBANCE, MOOD DISTURBANCE, AND ANXIETY 12/26/[address] active 11 UNSPECIFIED DIASTOLIC (CONGESTIVE) HEART FAILURE 12/26/[address] active 12 UNSPECIFIED PROTEIN-CALORIE MALNUTRITION 12/26/[address] active Reason for Referral No Reasons for Referral Entered Social History Social History Observation Description Start Date End Date Code Code System Current Smoking Status Tobacco smoking consumption unknown 329078502 SNOMED CT Sex Assigned At Male 1940 37550-0 [facility] Gender Identity Vital Signs Code Code System Vitals Name Values and Units Timing Information 9279-1 [facility] Respiratory Rate Value=16.0 Units=/m in 01/23/2024 8462-4 [facility] Blood Pressure-Diastolic Value=60 Un its=mmHg 01/23/2024 8480-6 [facility] Blood Pressure-Systolic Lnsgy=342 Un its=mmHg 01/23/2024 8310-5 [facility] Body Temperature Value=97.2 Units= F 01/23/2024 8867-4 [facility] Heart rate Value=86.0 Units=/min 07028-2 [facility] O2 % BldC Oximetry Value=99.0 Units= % 01/23/2024 36285-9 [facility] Pain Level Value=0.0 01/23/2024 94187-1 [facility] Weight Njbvz=476.3 Units=Lbs 8302-2 [facility] Height Value=71.0 Units=Inches 12/31/2023
--- OUTSIDE RECORDS SUMMARY | 2025-03-03 10:22 | XMS_ITS | Encounter Summary ---
Author Organization [facility] Address [address] [place] [address] Phone Care Team Providers Care Train Gateman Name Role Phone Rosamaria Gunderson MD Unavailable [phone] Cedrick Giles DO Unavailable Nirav Razo MD Primary Care Provider [phone] Alexus Gandhi Primary Care Provider [phone] Alexus Gandhi Unavailable [phone] Brissa Díaz OT Unavailable [phone] Rosamaria Gunderson MD Unavailable [phone] Encounter Details Date Type Department Care Team (Late st Contact Info) Description 04/22/2023 Procedure Pass [facility], Ct Scan - [address] [address] Social History Tobacco Use Types Packs/Day Years Used Date Smoking Tobacco: Never Smokeless Tobacco: Never Alcohol Use Standard Drinks/Week Comments Yes 2 (1 standard drink = 0.6 oz pur e alcohol) even less now Home Health Assessment: Transportation Answer Date Recorded Lack of Transportation (Medical) No 04/10/2023 Lack of Transportation (Non-Medical) No 04/10/2023 Patient Unable or Declines to Respond No 04/10/2023 Education Answer Date Recorded Are you interested in more education? Not on rohith e 10/19/2022 Are you concerned about learning? Not on file 10/19/2022 No 10/19/2022 No 10/19/2022 Digital Access Answer Date Recorded No 11/15/2022 No 11/15/2022 Reliable internet access at home? Not on file 11/15/2022 Device with a working camera? 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 Wish to be (Past 1 Month) No 04/22/2023 1:57 PM EDT Kirstie Bass RN 2. Non-Specific Active Suicidal Thoughts (Past 1 Month) No 04/22/2023 1:57 PM EDT Kirstie Bass, ALEX 6. Suicidal Behavior (Lifetime) No 04/22/2023 1:57 PM EDT Kirstie Bass RN documented as of this encounter Plan of Treatment Not on file documented as of this encounter Visit Diagnoses Not on filedocumented in this encounter Additional Health Concerns Infection Onset Date Last Indicated Resolved Time CoV-Risk Comment:Per note documentation 12/22/2023 12/22/2023 12:38 PM EDT Assessment Noted Time PHQ-9 Depression Total Score: 11 022 2:53 PM EDT PHQ-2 Depression Total Score: 1 04/26/20 22 2:53 PM EDT documented as of this encounter Care Teams Train Gateman Relationship Specialty Start Date End Date Nirav Razo MD [address] [place] [address], [facility] [address] [place] [address] PCP - General Family Medicine 09/13/22 04/26/23 Alexus Gandhi [address] [place] [address], [address] [place] [address] [email or web address] PCP - General Family Medicine 04/27/23 Rosamaria Gunderson MD Consulting Provider Geriatric Medicine 12/29/21 Cedrick Giles DO [address] [place] [address] 7 [place] [address] Insurance Assigned Provider 09/02/22 09/29/23 Alexus Gnadhi [address] [place] [address], [address] [place] [address] [email or web address] Insurance Assigned Provider 09/29/23 Brissa Díaz, [address] [address] Transitions Mrb EngineerHome Appliances Mechanic Therapy 12/24/2301/30/24 Rosamaria Gunderson MD Geriatric Medicine 04/28/24 documented as of this encounter Additional Source Comments The information contained in this document represents components of the legal health record. It is not the complete legal health record.[facility]
--- OUTSIDE RECORDS SUMMARY | 2025-03-03 10:22 | XMS_ITS | Encounter Summary ---
Author Organization [facility] Address [address] [place] [address] Phone Care Team Providers Care Last Sorter Name Role Phone Ashely Tovar MD Primary Care Provider [phone] Ashely Tovar MD Unavailable [phone] Jose Schulte OT Unavailable Rosamaria Gunderson MD Unavailable [phone] Cedrick Giles DO Unavailable Nirav Razo MD Primary Care Provider [phone] Alexus Gandhi Primary Care Provider [phone] Alexus Gandhi Unavailable [phone] Brissa Díaz OT Unavailable [phone] Rosamaria Gunderson MD Unavailable [phone] Encounter Details Date Type Department Care Team (Late st Contact Info) Description 09/21/2020 Procedure Pass [facility], Ct Scan - [address] [address] Social History Tobacco Use Types Packs/Day Years [...] Job Start Date Job End Date 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 on file Not on file No t on file documented as of this encounter Functional Status * Calculated C-SSRS Risk Score (Lifetime/Recent) Answer Date of Assessment Author No Risk Indicated 09/21/2020 2:23 PM EDT Yolanda Lilly RN * [place] Suicide Severity Rating Scale (Screener/Recent Self-Report) Question [...] documented as of this encounter Care Teams Last Sorter Relationship Specialty Start Date End Date Ashely Tovar MD [email or web address] PCP - General Family Medicine 08/19/18 09/12/22 Nirav Razo MD [address] [place] [address], [address] [place] [address] [email or web address] PCP - General Family Medicine 09/13/22 04/26/23 Alexus Gandhi [address] [place] [address], [address] [place], [place] [id number] [email or web address] PCP - General Family Medicine 04/27/23 Ashely Tovar MD [address] [place] [address] [email or web address] Insurance Assigned Provider 10/01/19 09/02/22 Jose Schulte, OT [address] [place] [address] [email or web address] Transitions Shift MechanicPsychiatric Secretary Therapy 09/22/2009/26/20 Rosamaria Gunderson MD [address] [place] [address] [email or web address] [email or web address] Provider Geriatric Medicine 12/29/21 Cedrick Giles DO [address] [place] [address], [address] [place] [address] [email or web address] Insurance Assigned Provider 09/02/22 09/29/23 Alexus Gandhi [address] [place] [address], [address] [place] [address] [email or web address] Insurance Assigned Provider 09/29/23 Brissa Díaz, OT [address] [place] [address] Transitions Shift MechanicPsychiatric Secretary Therapy 12/24/2301/30/24 Rosamaria Gunderson MD [address] [place] [address] [email or web address] Geriatric Medicine 04/28/24 documented as of this encounter Additional Source Comments The information contained in this document represents components of the legal health record. It is not the complete legal health record.[facility]
--- OUTSIDE RECORDS SUMMARY | 2025-03-03 10:22 | XMS_ITS | Encounter Summary ---
Author Organization [facility] Address [address] [place] [address] Phone Care Team Providers Care Fitness Centre Manager Name Role Phone Ashely Tovar MD Primary Care Provider Ashely Tovar MD Unavailable [phone] Rosamaria Gunderson MD Unavailable Cedrick Giles DO Unavailable Nirav Razo MD Primary Care Provider Alexus Gandhi Primary Care Provider Alexus Gandhi Unavailable Brissa Díaz OT Unavailable Rosamaria Gunderson MD Unavailable Encounter Details Date Type Department Care Team (Latest Contact Info) Description 12/10/2020 Transcribe Orders Virtual Department [address] [place] [address] Endy Negrete MD [address] [place] [address], [address] [place], [place] [id number] 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 No hemodynamically significant internal carotid artery stenosis. 2. Bilateral antegrade vertebral artery flow. Narrative 01/10/2021 3:27 PM EDT COMPARISON: None. CAROTID ULTRASOUND FINDINGS: RIGHT: Peak external carotid artery: 75 cm/sec Peak vertebral: 57 cm/sec and antegrade Carotid artery morphology: Mild mixed plaque in the bulb. Peak common carotid artery: 88/22 cm/sec Peak internal carotid artery: 84/25 cm/sec Normal peak systolic ratio. LEFT: Peak external carotid artery: 71 cm/sec Peak vertebral: 49 cm/sec and antegrade Carotid artery morphology: Mild mixed plaque in the bulb and proximal ICA. Peak common carotid artery: 142/26 cm/sec Peak internal carotid artery: 90/32 cm/sec Normal peak systolic ratio. Any stenosis measurement is relative to the distal ICA diameters. Procedure Note Taiwo Ramos MD - 01/10/2021 COMPARISON: None. CAROTID ULTRASOUND FINDINGS: RIGHT: Peak external carotid artery: 75 cm/sec Peak vertebral: 57 cm/sec and antegrade Carotid artery morphology: Mild mixed plaque in the bulb. Peak common carotid artery: 88/22 cm/sec Peak internal carotid artery: 84/25 cm/sec Normal peak systolic ratio. LEFT: Peak external carotid artery: 71 cm/sec Peak vertebral: 49 cm/sec and antegrade Carotid artery morphology: Mild mixed plaque in the bulb and proximalICA. Peak common carotid artery: 142/26 cm/sec Peak internal carotid artery: 90/32 cm/sec Normal peak systolic ratio. Any stenosis measurement is relative to the distal ICA diameters. IMPRESSION: 1. No hemodynamically significant internal carotid artery stenosis. 2. Bilateral antegrade vertebral artery flow. us Endy Negrete MD CV US NEUROVASCULAR Final Re sult documented in this encounter Visit Diagnoses Diagnosis TIA (transient ischemic attack)- Primary Unspecified transient cerebral ischemia TIA (transient ischemic attack) Unspecified transient cerebral ischemia documented in this encounter Additional Health Concerns Infection Onset Date Last Indicated Resolved Time CoV-Risk Comment:Per note documentation 12/22/2023 12/22/2023 12:38 PM EDT Assessment Noted Time PHQ-2 Depression Total Score: 5 08/19/19 19 1:39 PM EST documented as of this encounter Care Teams Fitness Centre Manager Relationship Specialty Start Date End Date Ashely Tovar MD [email or web address] PCP - General Family Medicine 08/19/18 09/12/22 Nirav Razo MD [address] [place] [address], [facility] 7 [place] [address] [email or web address] PCP - General Family Medicine 09/13/22 04/26/23 Alexus Gandhi [address] [place] [address], [address] [place] [address] [email or web address] PCP - General Family Medicine 04/27/23 Ashely Tovar MD [address] [place] [address] [email or web address] Insurance Assigned Provider 10/01/19 09/02/22 Rosamaria Gunderson MD [address] [place] [address] Consulting Provider Geriatric Medicine 12/29/21 Cedrick Giles DO [address] [place] [address], [address] [place] [address] [email or web address] Insurance Assigned Provider 09/02/22 09/29/23 Alexus Gandhi [address] [place] [address] [address] [place] [address] [email or web address] Insurance Assigned Provider 09/29/23 Brissa Díaz, OT [address] [place] [address] Transitions Plant Senior ManagerHot Mill Shearer Therapy 12/24/2301/30/24 Rosamaria Gunderson MD [address] [place] [address] Geriatric Medicine 04/28/24 documented as of this encounter Additional Source Comments The information contained in this document represents components of the legal health record. It is not the complete legal health record.[facility]
--- OUTSIDE RECORDS SUMMARY | 2025-03-03 10:22 | XMS_ITS | Encounter Summary ---
Author Organization [facility] Address [address] [place] [address] Phone Care Team Providers Care Clinical Mental Health Counselor Name Role Phone Rosamaria Gunderson MD Unavailable [phone] Cedrick Giles DO Unavailable Nirav Razo MD Primary Care Provider [phone] Alexus Gandhi Primary Care Provider Alexus Gandhi Unavailable [phone] Brissa Díaz OT Unavailable [phone] Rosamaria Gunderson MD Unavailable [phone] Encounter Details Date Type Department Care Team (Late st Contact Info) Description 04/22/2023 Procedure Pass [facility], Ct Scan - [address] [address] Social History Tobacco Use Types Packs/Day Years [...] 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 Not on file No t on file documented as of this encounter Functional Status * Calculated C-SSRS Risk Score (Lifetime/Recent) Answer Date of Assessment Author No Risk Indicated 04/22/2023 1:57 PM EDT Jimena Duran RN * [place] Suicide Severity Rating Scale (Screener/Recent Self-Report) Question [...] documented as of this encounter Care Teams Clinical Mental Health Counselor Relationship Specialty Start Date End Date Nirav Razo MD [address] [place] [address], [facility] [address] [place] [address] PCP - General Family Medicine 09/13/22 04/26/23 Alexus Gandhi [address] [place] [address], [address] [place] [address] [email or web address] PCP - General Family Medicine 04/27/23 Rosamaria Gunderson MD Consulting Provider Geriatric Medicine 12/29/21 Cedrick Giles DO [address] [place] [address] 7 [place] [address] Insurance Assigned Provider 09/02/22 09/29/23 Alexus Gandhi [address] [place] [address], [address] [place] [address] [email or web address] Insurance Assigned Provider 09/29/23 Brissa Díaz, [address] [address] Transitions Staff Electronic Warfare OfficerAir Traffic Control Specialist Center Therapy 12/24/2301/30/24 Rosamaria Gunderson MD Geriatric Medicine 04/28/24 documented as of this encounter Additional Source Comments The information contained in this document represents components of the legal health record. It is not the complete legal health record.[facility]
--- OUTSIDE RECORDS SUMMARY | 2025-03-03 10:23 | XMS_ITS | Encounter Summary ---
Author Organization [facility] Address [address] [place] [address] Phone Care Team Providers Care Cigar Head Piercer Name Role Phone Ashely Tovar MD Primary Care Provider [phone] Ashely Tovar MD Unavailable [phone] Jose Schulte OT Unavailable [phone] Rosamaria Gunderson MD Unavailable [phone] Cedrick Giles DO Unavailable Nirav Razo MD Primary Care Provider [phone] Alexus Gandhi Primary Care Provider [phone] Alexus Gandhi Unavailable [phone] Brissa Díaz OT Unavailable [phone] Rosamaria Gunderson MD Unavailable [phone] Encounter Details Date Type Department Care Team (Late st Contact Info) Description 07/09/2020 Procedure Pass [facility] [address] [place], [place] [id number] Social History Tobacco Use Types Packs/Day Years Used Date Smoking Tobacco: Never Smokeless Tobacco: Never Alcohol Use Standard Drinks/Week Comments Yes 2 (1 standard drink = 0.6 oz pur e alcohol) Sex and Gender Information Value Date Recorded Sex Assigned at Male 07/09/2020 3:06 PM EST Legal Sex Male 7:14 PM EST Gender Identity Male 07/09/2020 3:06 PM EST Sexual Orientation Not on file 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 Wish to be (Past 1 Month) No 021 3:06 PM EST Roula Messina RN 2. Non-Specific Active Suici david Thoughts (Past 1 Month) No 07/09/2020 3:06 PM EST Tobin Messina RN 6. Suicidal Behavior (Lifetime) No 3:06 PM EST Roula Messina RN documented as of this encounter Plan of Treatment Not on file documented as of this encounter Visit Diagnoses Not on filedocumented in this encounter Additional Health Concerns Infection Onset Date Last Indicated Resolved Time CoV-Risk Comment:Per note documentation 07/09/2020 07/09/2020 1 8:16 AM EST CoV-Risk Comment:Per note documentation 12/22/2023 12/22/2023 4 12:38 PM EDT Assessment Noted Time PHQ-2 Depression Total Score: 5 08/19/19 19 1:39 PM EST documented as of this encounter Care Teams Cigar Head Piercer Relationship Specialty Start Date End Date Ashely Tovar MD [email or web address] PCP - General Family Medicine 08/19/18 09/12/22 Nirav Razo MD [address] [place] [address], [address] [place] [address] [email or web address] PCP - General Family Medicine 09/13/22 04/26/23 Alexus Gandhi [address] [place] [address], [address] [place] [address] [email or web address] PCP - General Family Medicine 04/27/23 Ashely Tovar MD [address] [place] [address] [email or web address] Insurance Assigned Provider 10/01/19 09/02/22 Jose Schulte, OT [address] [place] [address] [email or web address] Transitions Heel Seat Fitter MachineAssembler For Puller Over Hand Therapy 09/22/2009/26/20 Rosamaria Gunderson MD [address] [place] [address] [email or web address] Consulting Provider Geriatric Medicine 12/29/21 Cedrick Giles DO [address] [place] [address], [address] [place] [address] [email or web address] Insurance Assigned Provider 09/02/22 09/29/23 Alexus Gandhi [address] [place] [address], [address] [place] [address] [email or web address] Insurance Assigned Provider 09/29/23 Brissa Díaz, OT [address] [place] [address] [email or web address] Transitions Heel Seat Fitter MachineAssembler For Puller Over Hand Therapy 12/24/2301/30/24 Rosamaria Gunderson MD [address] [place] [address] [email or web address] Geriatric Medicine 04/28/24 documented as of this encounter Additional Source Comments The information contained in this document represents components of the legal health record. It is not the complete legal health record.[facility]
--- OUTSIDE RECORDS SUMMARY | 2025-03-03 10:23 | XMS_ITS | Encounter Summary ---
Author Organization [facility] Address [address] [place] [address] Phone Care Team Providers Care It Network Architect Name Role Phone Rosamaria Gunderson MD Unavailable [phone] Cedrick Giles DO Unavailable Alexus Gandhi Primary Care Provider [phone] Alexus Gandhi Unavailable Brissa Díaz OT Unavailable Rosamaria Gunderson MD Unavailable [phone] Encounter Details Date Type Department Care Team (Late st Contact Info) Description 08/01/2023 Procedure Pass Echo Lab [address] [place] [address] Social History Tobacco Use Types Packs/Day Years [...] Job Start Date Job End Date 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 PCP - General Family Medicine 04/27/23 Rosamaria Gunderson MD Consulting Provider Geriatric Medicine 12/29/21 Cedrick Giles DO [address] [place] [address], [address] [place] [address] Insurance Assigned Provider 09/02/22 09/29/23 Alexus Gandhi [address] [place] [address], [address] [place] [address] [email or web address] Insurance Assigned Provider 09/29/23 Brissa Díaz, OT [address] [place] [address] [email or web address] Transitions Graphic Design SpecialistStudent Success Coach Therapy 12/24/2301/30/24 Rosamaria Gunderson MD [email or web address] Geriatric Medicine 04/28/24 documented as of this encounter Additional Source Comments The information contained in this document represents components of the legal health record. It is not the complete legal health record.[facility]
--- OUTSIDE RECORDS SUMMARY | 2025-03-03 10:23 | XMS_ITS | Encounter Summary ---
Author Organization [facility] Address [address] [place] [address] Phone Care Team Providers Care Ultrasonographer Name Role Phone Ashely Tovar MD Primary Care Provider [phone] Ashely Tovar MD Unavailable [phone] Jose Schulte OT Unavailable Rosamaria Gunderson MD Unavailable [phone] Cedrick Giles DO Unavailable Nirav Razo MD Primary Care Provider Alexus Gandhi Primary Care Provider [phone] Alexus Gandhi Unavailable [phone] Brissa Díaz OT Unavailable [phone] Rosamaria Gunderson MD Unavailable [phone] Encounter Details Date Type Department Care Team (Late st Contact Info) Description 07/09/2020 Procedure Pass [facility], Ct Scan - [address] [address] Social History Tobacco Use Types Packs/Day Years [...] 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 Wish to be (Past 1 Month) No 021 3:06 PM Roula Treviño RN 2. Non-Specific Active Suici david Thoughts (Past 1 Month) No 07/09/2020 3:06 PM Tobin Treviño RN 6. Suicidal Behavior (Lifetime) No 3:06 PM Roula Treviño RN documented as of this encounter Plan [...] documented as of this encounter Care Teams Ultrasonographer Relationship Specialty Start Date End Date Ashely Tovar MD [email or web address] PCP - General Family Medicine 08/19/18 09/12/22 Nirav Razo MD [address] [place] [address] [address] [place] [address] [email or web address] PCP - General Family Medicine 09/13/22 04/26/23 Alexus Gandhi [address] [place] [address], [address] [place] [address] [email or web address] PCP - General Family Medicine 04/27/23 Ashely Tovar MD [address] [place] [address] [email or web address] Insurance Assigned Provider 10/01/19 09/02/22 Jose Schulte, OT [address] [place] [address] [email or web address] Transitions Associate Professor Computer ScienceMeat Dresser Therapy 09/22/2009/26/20 Rosamaria Gunderson MD [address] [place] [address] [email or web address] Consulting Provider Geriatric Medicine 12/29/21 Cedrick Giles DO [address] [place] [address], [address] [place] [address] [email or web address] Insurance Assigned Provider 09/02/22 09/29/23 Alexus Gandhi [address] [place] [address], [address] [place] [address] [email or web address] Insurance Assigned Provider 09/29/23 Brissa Díaz, OT [address] [place] [address] [email or web address] Transitions Associate Professor Computer ScienceMeat Dresser Therapy 12/24/2301/30/24 Rosamaria Gunderson MD [address] [place] [address] Geriatric Medicine 04/28/24 documented as of this encounter Additional Source Comments The information contained in this document represents components of the legal health record. It is not the complete legal health record.[facility]
--- OUTSIDE RECORDS SUMMARY | 2025-03-03 10:23 | XMS_ITS | Encounter Summary ---
Author Organization [facility] Address [address] [place] [address] Phone Care Team Providers Care Applications Engineer Name Role Phone Rosamaria Gunderson MD Unavailable [phone] Alexus Gandhi Primary Care Provider Alexus Gandhi Unavailable [phone] Brissa Díaz OT Unavailable [phone] Rosamaria Gunderson MD Unavailable [phone] Encounter Details Date Type Department Care Team (Late st Contact Info) Description 12/22/2023 Procedure Pass [facility], Ct Scan - [address] [address] Social History Tobacco Use Types Packs/Day Years [...] your housing situation today? 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 Wish to be (Past 1 Month) No 12/22/2023 9:35 AM EDT Letty Akers ae, RN 2. Non-Specific Active Suici david Thoughts (Past 1 Month) No 12/22/2023 9:35 AM EDT Isamar Akers RN 6. Suicidal Behavior (Lifetime) No 9:35 AM EDT Letty Akers RN documented as of this encounter Plan [...] documented as of this encounter Care Teams Applications Engineer Relationship Specialty Start Date End Date Alexus Gandhi [address] [place] [address], [address] [address] [email or web address] PCP - General Family Medicine 04/27/23 Rosamaria Gunderson MD [email or web address] Consulting Provider Geriatric Medicine 12/29/21 Alexus Gandhi [address] [place] [address], [address] [address] [email or web address] Insurance Assigned Provider 09/29/23 Brissa Díaz, OT [address] [place] [address] [email or web address] Transitions Change Management ExpertScallop Dredger Therapy 12/24/2301/30/24 Rosamaria Gunderson MD [email or web address] Geriatric Medicine 04/28/24 documented as of this encounter Additional Source Comments The information contained in this document represents components of the legal health record. It is not the complete legal health record.[facility]
--- OUTSIDE RECORDS SUMMARY | 2025-03-03 10:23 | XMS_ITS | Encounter Summary ---
Author Organization [facility] Address [address] [place] [address] Phone Care Team Providers Care Mixing Engineer Name Role Phone Chantel Quinn MD Primary Care Provider [phone] Chantel Quinn MD Unavailable Pcp, Unknown Primary Care Provider Unavailabl e Ashely Tovar MD Primary Care Provider Ashely Tovar MD Unavailable [phone] Jose Schulte OT Unavailable [phone] Rosamaria Gunderson MD Unavailable [phone] Cedrick Giles DO Unavailable Nirav Razo MD Primary Care Provider [phone] Alexus Gandhi Primary Care Provider [phone] Alexus Gandhi Unavailable [phone] Brissa Díaz OT Unavailable [phone] Rosamaria Gunderson MD Unavailable [phone] Encounter Details Date Type Department Care Team (Latest Contact Info) Description 11/17/2015 Transcribe Orders [facility] [address] [place] [address] Chantel Quinn MD [address] [place] [address] [email or web address] Unspecified hypothyroidism (Primary Dx); Routine general medical examination at a health care facility; Special screening for malignant neoplasm of prostate Social History Tobacco Use Types Packs/Day Years Used Date Smoking Tobacco: Never Sex and Gender Information Value Date Recorded Sex Assigned at Male 07/09/2020 3:06 PM EST Legal Sex Male 7:14 PM EST Gender Identity Male 07/09/2020 3:06 PM EST Sexual Orientation Not on file documented as of this encounter Plan of Treatment Not on file documented as of this encounter Results * Comprehensive metabolic panel (11/17/2015 11:01 AM EDT) SODIUM 144 136 - 145 mmol/L [facility] POTASSIUM 4.2 3.5 - 5.2 mmol/L [facility] CHLORIDE 104 99 - 109 mmol/L [facility] CO2 26 20 - 31 mmol/L [facility] BUN 18 9 - 23 mg/dL [facility] CREATININE 0.76 0.5 - 1.3 mg/dL [facility] GLUCOSE 76 74 - 106 mg/dL [facility] ALBUMIN 4.3 3.5 - 4.8 g/dL [facility] TOTAL PROTEIN 6.7 5.7 - 8.2 g/dL [facility] CALCIUM 9.3 8.7 - 10.4 mg/dL [facility] ALKALINE PHOSPHATASE 67 27 - 129 U/L [facility] TOTAL BILIRUBIN 0.7 0 - 1 mg/dL [facility] AST 25 6 - 40 U/L [facility] ALT 17 10 - 49 U/L [facility] GLOBULIN 2.4 1.9 - 4.1 g/dL [facility] EGFR >60 mL/min/1.7 3m2 [facility] Comment:Abnormal if <60 mL/m in/1.73m2. If patient is -Norwegian, multiply the result by 1.21. ANION GAP 14 3 - 17 mmol/L [facility] Blood 11/17/2015 11:0 1 AM EDT 11/17/2015 2:33 PM EDT Chantel Quinn MD LAB BLOOD ORDERABLES Final Resul t Performing Organization Address [facility] de Phone Number [facility] [address] [place] [address] * TSH with reflex ([facility] Only) (11/17/2015 11:01 AM EDT) SCREENING PANEL: TSH 0.65 0.40 - 5.00 uIU/mL [facility] Blood 11/17/2015 11:0 1 AM EDT 11/17/2015 2:33 PM EDT Chantel Quinn MD LAB BLOOD ORDERABLES Final Resul t Performing Organization Address [facility] Phone Number [facility] [address] [place] [phone] * (ABNORMAL) PSA (screening) ([facility] Only) (11/17/2015 11:01 AM EDT) PSA SCREEN 4.60(H) 0 - 4 ng/mL [facility] Comment:Method: Immunoassay Citlali ROWENA Blood 11/17/2015 11:0 1 AM EDT 11/17/2015 2:33 PM EDT Chantel Quinn MD LAB BLOOD ORDERABLES Final Resul t Performing Organization Address [facility] de Phone Number [facility] [address] [place] [address] documented in this encounter Visit Diagnoses Diagnosis Unspecified hypothyroidism- Primary Routine general medical examination at a health care facility Special screening for malignant neoplasm of prostate documented in this encounter Additional Health Concerns Infection Onset Date Last Indicated Resolved Time CoV-Risk Comment:Per note documentation 07/09/2020 07/09/2020 1 8:16 AM EST CoV-Risk Comment:Per note documentation 12/22/2023 12/22/2023 4 12:38 PM EDT documented as of this encounter Care Teams Mixing Engineer Relationship Specialty Start Date End Date Chantel Quinn MD [address] [place] [address] [email or web address] PCP - General 07/18/13 09/26/17 Pcp, Unknown PCP - General 09/27/17 08/18/18 Ashely Tovar MD [email or web address] PCP - General Family Medicine 08/19/18 09/12/22 Nirav Razo MD [address] [place] [address] 7 [place] [address] [email or web address] PCP - General Family Medicine 09/13/22 04/26/23 Alexus Gandhi [address] [place] [address], [address] [place] [address] [email or web address] PCP - General Family Medicine 04/27/23 Chantel Quinn MD [address] [place] [address] [email or web address] Insurance Assigned Provider 08/29/15 07/21/17 Ashely Tovar MD [address] [place] [address] [email or web address] Insurance Assigned Provider 10/01/19 09/02/22 Jose Schulte OT [address] [place] [address] [email or web address] Internal Communications WriterRaw Shellfish Preparer Therapy 09/22/2009/26/20 Rosamaria Gunderson MD [address] [place] [address] Consulting Provider Geriatric Medicine 12/29/21 Cedrick Giles DO [address] [place] [address], [address] [place] [address] Insurance Assigned Provider 09/02/22 09/29/23 Alexus Gandhi [address] [place] [address], [address] [place] [address] [email or web address] Insurance Assigned Provider 09/29/23 Brissa Díaz, OT [address] [place] [address] Transitions Internal Communications WriterRaw Shellfish Preparer Therapy 12/24/2301/30/24 Rosamaria Gunderson MD [address] [place] [address] Geriatric Medicine 04/28/24 documented as of this encounter Additional Source Comments The information contained in this document represents components of the legal health record. It is not the complete legal health record.[facility]
--- OUTSIDE RECORDS SUMMARY | 2025-03-03 10:23 | XMS_ITS | Clinical Summary ---
Author Organization [facility] Address [address] [place] [address] Phone Care Team Providers Care Ironing Worker Name Role Phone Rosamaria Gunderson MD Unavailable [phone] Alexus Gandhi Primary Care Provider Alexus Gandhi Unavailable [phone] Rosamaria Gunderson MD Unavailable [phone] Allergies No known active allergies Medications metoprolol succinate (TOPROL-XL) 25 MG 24 hr tabletIndications :Paroxysmal atrial fibrillation Take 1 tablet (25 mg total) by mouth daily. 90 tablet 3 4 Active sertraline (ZOLOFT) 25 MG tabletIndications :Anxiety Take 1 tablet (25 mg total) by mouth daily. 90 tablet 3 4 Active tamsulosin (FLOMAX) 0.4 mg Cap Take 1 capsule (0.4 mg total) by mouth nightly at bedtime. 90 capsule 1 4 Active acetaminophen (TYLENOL) 500 MG tablet Take 500 mg by mouth 2 (two) times a day. Active torsemide (DEMADEX) 20 MG tablet 4 Active levothyroxine (SYNTHROID, LEVOTHROID) 112 MCG tabletIndications :Hypothyroidism, unspecified type take 1 tablet by mouth every morning 90 tablet 3 4 Active Active Problems Problem Noted Date Diagnosed Date Bilateral hydronephrosis 12/23/2023 Assessment & Plan (12/24/2023 1:43 PM EDT): CT reveals bilateral hydronephrosis with bladder outlet obstruction. Patient had high PVRs greater than 500 therefore Fuller catheter placed. - Case discussed with urology Dr. Corado Creatinine nearly tripled from baseline Plan - Fuller catheter remain in place. -Outpatient urology follow-up in 1-2 weeks - Ultrasound in 1 week Repeat bmp Anemia 12/22/2023 Assessment & Plan (12/25/2023 3:05 PM EDT): Found on the bathroom floor, no recolection of fall. Baseline anemia Hgb 8-9 recent baseline. On xeralto for a fib. Reported recent hx of black stool, streaks of red in stool to ED provider but not to admitting provider. Hgb 5.7 on admission, light brown stool in rectal vault in ED. Overall impression is sub acute GI bleed. Abdomen pelvis revealed no evidence of intra-abdominal hematoma or fluid collection 12/22-hemoglobin 7.5 peak was 7.8 overnight. 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 Vickers recommending a minimum of 10 days prior to resuming, however the patient is high risk and consideration should be made for not resuming at all -Transfuse for hemoglobin less than 7 or symptoms - on PPI IV - monitor on telemetry IV iron, may end up benefitting from epo as well Acute kidney injury superimposed on chronic kidn ey disease 12/22/2023 Assessment & Plan (12/25/2023 3:05 PM EDT): Baseline creatinine 1.1-1.4 CT abdomen reveals bilateral hydronephrosis and bladder outlet obstruction JENNIFER is likely multifactorial including bladder outlet obstruction with bilateral hydronephrosis and anemia. Creatinine improving Plan - Maintain Fuller catheter in place with urology for outpatient follow-up. -Monitor renal function. Pain of right hip 08/20/2023 Assessment & Plan (08/22/2023 3:41 PM EST): Notices pain and discomfort when lying down before falling asleep at time. No recent falls or trauma. Sharp pain. When it occurs it varies in intensity. No radiation. Sometimes occurs with standing and will favor his other side. Tylenol can help. Sometimes getting up can help. Referral to physiatry placed. Frequent falls 04/27/2023 Assessment & Plan (12/23/2023 1:51 PM EDT): Patient has had multiple mechanical falls in the past year or so. This admission, found on the floor, unknown mechanism of fall. Appears to be atraumatic from fall. Head CT in ED without acute abnormality. -PT/OT to start after endoscopy 12/23 Assessment & Plan (08/22/2023 3:42 PM EST): Has not yet contacted the business trainer at his housing facility. Is walking daily with friend. Feels like his balanced improved when the edema in his legs went down. No further falls. Assessment & Plan (04/27/2023 5:21 PM EDT): Patient has had multiple mechanical falls. [facility] has a policy that any fall requires a trip to the ED for further evaluation. He has been seen in the ED multiple times recently even just for very minor falls and each time has received CT scans. Daughter finds this frustrating as she does not feel like he needs ED evaluation at every instance. Balance and stability have been worsening for the past couple of years. Has participated in PT in the past. Is currently doing a balance exercise class . -Offered PT but declines -Will speak to business trainer at [facility] to discuss helping him with more stability training. -We will continue to monitor. I do think patient will potentially need more assistance and living in the coming years. Frontotemporal dementia 04/27/2023 Assessment & Plan (12/22/2023 2:09 PM EDT): Progressing. Sees Dr. Negrete for neuroglogy. Lives in assisted living. On admission, patient is alery, oriented to self, hospital. Not oriented to date or situation. He is able to articulate he is DNR/DNI and requests to involve Migdalia/HCP in all medical decision making. Attention is good, but patient is notably sleepy and loses train of through and dozes off during interview. - Daughter Migdalia is HCP, on file - POLST filled out with patient, HCP present and in agreement - at risk for delirium Assessment & Plan (04/27/2023 5:18 PM EDT): Progressing. Sees Dr. Negrete for neuroglogy. Is currently still living largely independently. Daughter has looked into assisted living places though most have wait list at this time. -I do not have notes from Dr. Negrete and daughter will try to obtain them for me for further review. Localized edema 04/27/2023 Assessment & Plan (04/27/2023 5:16 PM EDT): Wounds to the lower extremeties. Seen by wound care and has [facility] come in for bandage changes. Seems like it is improving and patient has been able to be more mobile. -Continue follow-up for wound care. Diastolic heart failure 04/27/2023 Assessment & Plan (12/25/2023 3:04 PM EDT): TTE 09/19/23 EF 50%, right ventricle severely dilated and hypokinetic, mild MR, moderate to severe TR. Chart notes edema LLE>RLE at baseline. Home diuretic regimen: torsemide 60mg daily (recently had dose to 40 mg daily), spironolactone 25mg daily, metolazone 5mg PRN (no recent use!) On admission, elevated BNP to 5,417; 1 week prior had been 3,500. Elevation in BNP could be explained by worsening renal function and/or mild volume overload. CXR with small pleural effusion, prominence of pulm vasculature. Daughter explains last week patient was placed on diuretic holiday when Cr was noted to be elevated on outpatient labs, since then he has gained 4lbs and was recently resumed on torsemide 40mg daily on 12/18 x 3 days without significant change in weight. 12/22 exam with no pulmonary crackles. SpO2 97% on room air. Trace leg edema no significant JVD Noted clinically patient only mildly overloaded despite elevated BNP and weight gain. -Continue to hold diuretics -Strict I's and O's and daily weights - Monitor for signs of significant volume overload. Will need to restart diuretics once more hemodynamically stable Assessment & Plan (08/01/2023 1:34 PM EST): He appears euvolemic on exam today. His legs still continue to have some edema with the left worse than right. He is tolerating torsemide 60 mg daily. He has stopped weighing himself daily and asked him to start doing this. He does have metolazone 5 mg daily as needed ordered however he has not needed to use this medication. He reports not having any symptoms for heart failure at this time. His last echocardiogram shows a moderate mitral regurgitation and that was 3 years ago. Will plan on repeating his echocardiogram in the next 6 months or so. proBNP and BMP will be drawn later today as per patient's family member that is present with him they were not able to get these done prior to the appointment. Assessment & Plan (04/27/2023 5:19 PM EDT): Stable. Sees cardiology. Takes metolazone as needed if edema worsens. Has had a discussion recently with cardiology that they may potentially make metolazone weekly. -Continue spironolactone 25 mg daily, torsemide 60 mg daily, metoprolol 25 mg daily. -Continue metolazone 5 mg as needed -Continue follow-up with cardiology. Counseling regarding advanced directives and goa ls of care 04/27/2023 Assessment & Plan (04/27/2023 5:15 PM EDT): Patient is listed as full code in his chart. We discussed at length the his wishes for care. He still thinks he would like CPR but does not want intubation. We did discuss that these wishes are not feasible as any code during which CPR was administered would also require intubation. -MOST form was provided. Her throat will discuss further with his stepdaughter who is his health proxy. Encounter to establish care with new doctor 08/2022 Assessment & Plan (04/27/2023 5:22 PM EDT): This is a 83 y.o. male who presents to establish care. -Past medical history, surgical history, social history, family history and allergies reviewed and document in chart. -I spent a total of 60 minutes on care for this patient on the date of the encounter. This includes [id number] time during the visit as well as non [id number] time spent on chart review, documentation, and care coordination. BELKIS (obstructive sleep apnea) 01/14/2021 Assessment & Plan (12/23/2023 1:50 PM EDT): Stable Daughter has brought in patient's CPAP machine and respiratory has set up for use when asleep. -continue CPAP at night Assessment & Plan (04/27/2023 3:40 PM EDT): Stable. -Uses CPAP at night. Daytime sleepiness 10/22/2020 Paroxysmal atrial fibrillation 07/20/2020 Assessment & Plan (12/23/2023 1:50 PM EDT): Follows with [facility]. Exam today reveals atrial fibrillation with heart rates in the 70s. -Controlled on metoprolol. No changes -Home Xarelto held. NB. Prior to admission, noted to be high risk for bleeds and falls prior to this admission. Assessment & Plan (08/01/2023 1:33 PM EST): He has a history for paroxysmal atrial fibrillation. He is rate controlled here in the office at 75 bpm currently on metoprolol 25 mg daily. He is on Xarelto 20 mg daily for anticoagulation which she will remain on without change. Assessment & Plan (04/27/2023 5:16 PM EDT): Stable. Followed by cardiology regularly. Is a risk to be on anticoagulation given that he has had multiple mechanical falls and has had recurrent visits to the ED recently. -Continue metoprolol 25 mg daily and Xarelto 20 mg daily. Assessment & Plan (04/04/2022 12:27 PM EDT): Virtual Visit Attestation Modality: video Provider Location: home / other Patient Location: home Patient State: [place] is doing well at home. He is taking his medications as directed. He is also followed by his rayon coner. Assessment & Plan (09/27/2020 1:15 PM EDT): Can you order twice a year atrial fibrillation 88% of the time and I am going to send him for consideration of watchman device I think he is quite a risk of bleeding complication with oral anticoagulation Assessment & Plan (09/23/2020 1:00 PM EDT): Patient does have episodic atrial fibrillation with RVR although his recent outpatient 14-day event monitor did not show any episodes. Completed 08/10/2020 the report documents 88.6% of the time atrial fibrillation with minimum heart rate 44, average heart rate 63 and maximum heart rate 92, without any documented pauses. No cause for his syncope was confirmed. -Cardiology consult, ? Watchman device Assessment & Plan (08/02/2020 12:14 PM EST): Currently this patient is in atrial fibrillation over the next several weeks we will figure out if this patient is able to take oral anticoagulation or is too much of a fall risk which is unclear at this time I am going to see him after loop recorder is done I have given him a prescription for Xarelto 20 mg daily. Atrial fibrillation with RVR 07/09/2020 Assessment & Plan (07/11/2020 5:12 PM EST): Good rate control on metoprolol. No anticoagulation at this point. Outpatient follow-up with Dr. Tuttle Major depressive disorder in remission 9 Assessment & Plan (04/27/2023 3:37 PM EDT): Stable on Zoloft. -Continue Sertraline Assessment & Plan (04/04/2022 12:27 PM EDT): Stable on his zoloft- I refilled this today. Anxiety 08/19/2018 Assessment & Plan (04/27/2023 5:20 PM EDT): Stable. -Continue sertraline 25 mg daily. Assessment & Plan (04/04/2022 12:27 PM EDT): Mel on his zoloft- I refilled this today. Assessment & Plan (08/02/2020 12:15 PM EST): Present but asymptomatic BPH (benign prostatic hyperplasia) 08/19/2018 Assessment & Plan (04/27/2023 3:36 PM EDT): Stable. Reports frequent urination and urgency. -Continue tamsulosin 0.4mg daily. Assessment & Plan (09/21/2020 6:21 PM EDT): Continue home dose of tamsulosin. No current issues with urination. Assessment & Plan (07/11/2020 5:13 PM EST): Bothered a lot by nocturia and frequency. Tamsulosin was ordered in the a.m. here and he takes it in the p.m. at home. We discussed the potential for going up to 0.8 but he would like to wait. He is worried about potential dizziness. Hypothyroidism 08/18/2009 Assessment & Plan (12/22/2023 1:11 PM EDT): Continue home levothyroxine. Assessment & Plan (04/27/2023 3:34 PM EDT): Stable. -Continue levothyroxine 112mcg daily -Will recheck TSH at this time. 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 He will call if there are any other issues or concerns. Assessment & Plan (09/27/2020 1:15 PM EDT): Treated with replacement Assessment & Plan (09/21/2020 6:20 PM EDT): Continue home dose of levothyroxine 112 mcg metal products viewer. Assessment & Plan (07/09/2020 7:42 PM EST): Home dose of levothyroxine continued. Resolved Problems Problem Noted Date Diagnosed Date Resolved Date Acute pain of left lower extremity 09/23/2020 01/13/2021 Assessment & Plan (09/23/2020 1:08 PM EDT): Status post fall. Patient complains of left femur pain. He does have tenderness to palpation with positive edema. Negative for ecchymosis. X-ray left femur reveals no displaced fracture or dislocation of the left femur. -We will obtain a CT left femur r/o fx Chest pain at rest 09/21/2020 Assessment & Plan (09/23/2020 1:07 PM EDT): Positional, reproducible chest discomfort with palpation, suspected to be a mild injury to his ribs after his fall. EKG and cardiac enzymes reassuring. No exertional symptoms. Chest x-ray revealed no rib fractures or acute chest disease. Malnutrition 07/20/2020 01/13/2021 Assessment & Plan (08/02/2020 12:14 PM EST): Getting better after his bout of diverticulitis has ended Diverticulitis 07/09/2020 04/27/2023 Assessment & Plan (07/11/2020 5:12 PM EST): Mild diverticulitis left lower quadrant. On antibiotics. Tolerating advancing diet to low fiber. Discharge tomorrow to complete antibiotics orally Syncope and collapse 07/09/2020 021 Assessment & Plan (07/10/2020 5:27 PM EST): Syncope likely due to the RVR Atrial fibrillation with RVR 04/27/2023 Assessment & Plan (04/27/2023 3:39 PM EDT): On xarelto. Immunizations Immunization Administration Dates Next Due COVID-19 (Pre-04/16) Pfizer Vaccine, mRNA, PF 04/05/2021,08/23/2020,08/02/2020 [id number] FORMULATION 08/18/2009 INFLUENZA, SPLIT VIRUS, TRIVALENT PF 03/13/2012 INFLUENZA, SPLIT VIRUS, TRIV ALENT W/ PRESERVATIVE IM 03/26/2013 Influenza High-Dose Quadriva lent Preservative Free IM 03/26/2023,04/24/2022 Influenza High-Dose Trivalen t Preservative Free IM 04/23/2018,03/30/2016,03/02/2015,04/16 Influenza Trivalent Adjuvant ed Preservative free IM 04/10/2018,04/06/2017 Influenza, Unspecified Formulation 03/27,04/19/2011,04/01/2010,08/18,04/09/2009,05/05/2008 Pneumococcal conjugate PCV13 11/11/2014 Pneumococcal polysaccharide PPSV23 08/24/2010 Pneumococcal, Unspecified Formulation 08/24/2010 Td (adult),2 Lf Tetanus Toxo id, PF, Adsorbed 09/27/2021 Td, unspecified formulation 08/18/2009 Zoster live 11/10/2013 Family History Medical History Relation Comments Anxiety disorder Father Prostate cancer Father prostate cancer Lung cancer Maternal Aunt smoker No Known Problems Mother Suicide COPD Sister Relation Status Comments Father Maternal Aunt Mother Sister Alive Social History Tobacco Use Types Packs/Day Years Used Date Smoking Tobacco: Never Smokeless Tobacco: Never Tobacco Cessation:Counseling Given: Not Answered Alcohol Use Standard Drinks/Week Comments Yes 2 [...] Job Start Date Job End Date 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 User may not have seen previous data. Body Mass Index 25.02 12/22/2023 1:39 PM EDT Plan of Treatment Health Maintenance Due Date Last Done Comments ZOSTER VACCINES (2 of 3) 01/05/2014 11/10/2013 RSV VACCINE (1 - 1-dose 75+ series) 2015 COVID-19 VACCINE (2023- season) 2024 10/31/2023, 05/15/2023, 10/30/2022, Additional history exists DEPRESSION SCREENING 04/27/2024 04/27/2023, 04/26/20 22 TSH LEVEL 05/15/2024 05/15/2023, 05/25, 10/27/2021, Additional history exists INFLUENZA VACCINE (#1) 2025 , 03/26/2023, 04/24/2022, Additional history exists Adult Td,Tdap Booster 09/28/2031 09/27/2021, 010 PNEUMOCOCCAL VACCINES (50+ years) Completed 11/11/2014, 08/24/2010 HEPATITIS A VACCINES Aged Out No long er eligible based on patient's age to complete this topic HIB VACCINES Aged Out No longer eligi ble based on patient's age to complete this topic MENINGOCOCCAL VACCINES (ACWY) Aged Out No longer eligible based on patient's age to complete this topic MENINGOCOCCAL VACCINES (B) Aged Out N o longer eligible based on patient's age to complete this topic Medical Devices Not on file Procedures Procedure Name Priority Date/Time Associated Diagnosis Comments TSH WITH REFLEX Routine 05/15/2023 11:59 AM EST Hypothyroidism, unspecified type from Last 3 Months or Most Recently Relevant to Health Maintenance Results * TSH with reflex (05/15/2023 11:59 AM EST) TSH 1.66 0.27 - 4.20 uIU/mL [facility] Blood 05/15/2023 11:5 9 AM EST 05/15/2023 12:02 PM EST Alexus Gandhi LAB BLOOD ORDERABLES Final Result [facility] [address] [place] [address] from Last 3 Months or Most Recently Relevant to Health Maintenance Insurance MEDICARE PART A & B [employer] ENHANCE SUPPLEMENT MEDICARE PART A & B [employer] ENHANCE SUPPLEMENT MEDICARE PART A & B MEDICARE PART A & B MEDICARE PART A & B [facility] MEDICARE ENHANCE SUPPLEMENT MEDICARE PART A & B [facility] MEDICARE ENHANCE SUPPLEMENT MEDICARE PART A & B [employer] ENHANCE SUPPLEMENT MEDICARE PART A & B MEDICARE PART A & B [employer] ENHANCE SUPPLEMENT Advance Directives For more information, please contact: [phone] (9AM - 5PM [facility], Sunday-Sunday) Documents on File Type Date Recorded Patient Soyfreeze Operator Expl anation MOLST 12/28/2023 4:08 PM Healthcare Proxy 09/28/2020 11:08 AM * DNR/DNI (No CPR/No Intubation) (Latest Code Status on File) Date Activated Date Inactivated Comments 12/22/2023 2:16 PM Question Answer Comments Code Status Confirmed With: PatientFamily * Full Code Date Activated Date Inactivated Comments 09/21/2020 6:29 PM 12/22/2023 2:16 PM Question Answer Comments Code Status Confirmed With: Patient * Full Code Date Activated Date Inactivated Comments 07/09/2020 7:34 PM 09/21/2020 6:29 PM Question Answer Comments Code Status Confirmed With: Patient Healthcare Agents on File Name Relationship Healthcare Agent Relationship Communication Migdalia Ballard Daughter .Primary Healt h Care Agent (Proxy form on file) [email or web address] m Care Teams Ironing Worker Relationship Specialty Start Date End Date Alexus Gandhi [address] [place] [address], [address] [place] [address] [email or web address] PCP - General Family Medicine 04/27/23 Rosamaria Gunderson MD Consulting Provider Geriatric Medicine 12/29/21 Alexus Gandhi [address] [place] [address], [address] [place] [address] [email or web address] Insurance Assigned Provider 09/29/23 Rosamaria Gunderson MD Geriatric Medicine 04/28/24 Additional Source Comments The information contained in this document represents components of the legal health record. It is not the complete legal health record.[facility]
--- OUTSIDE RECORDS SUMMARY | 2025-03-03 10:23 | XMS_ITS | Encounter Summary ---
Author Organization [facility] Address [address] [place] [address] Phone Care Team Providers Care Field Tech Name Role Phone Ashely Tovar MD Primary Care Provider [phone] Rosamaria Gunderson MD Unavailable [phone] Cedrick Giles DO Unavailable Nirav Razo MD Primary Care Provider [phone] Alexus Gandhi Primary Care Provider [phone] Alexus Gandhi Unavailable [phone] Brissa Díaz OT Unavailable [phone] Rosamaria Gunderson MD Unavailable [phone] Reason for Referral * MRI/CAT Scan - Closed Specialty Diagnoses / Procedures Referred By Eli ty Referred To Contact Radiology Diagnoses Ataxia Memory loss Procedures MRI Brain Endy Negrete MD Phone: tel: fax: mailto: Referral ID Status Reason Start Date Expiration Date Visits Re quested Visits Authorized [id number] Closed 09/08/2022 09/08/2023 1 1 Encounter Details Date Type Department Care Team (Latest Contact Info) Description 09/08/2022 Transcribe Orders Virtual Department [address] [place] [address] Endy Negrete MD [address] [place] [address], [address] [place] [address] 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 No definite evidence of a regional brain parenchymal volume loss pattern. Narrative 09/22/2022 6:52 AM EDT MRI BRAIN WITHOUT CONTRAST TECHNIQUE: MRI BRAIN WITHOUT CONTRAST Multi-sequence, multi-planar MRI of the brain was performed without intravenous contrast. COMPARISON: Head CT 09/24/2020. FINDINGS: Brain Parenchyma: No evidence of acute infarct, mass lesion, or recent hemorrhage. Punctate focus of susceptibility effect in the anterior left frontal lobe on 9:59, stable since 2020, likely a clinically significant tiny old microhemorrhage. Hippocampal volumes are not well assessed in the absence of coronal images. Ventricular System and Extra-Axial Spaces: Mild generalized parenchymal volume loss Mild diffuse prominence of the lateral ventricles, without transependymal edema or morphologic evidence of normal pressure hydrocephalus, likely related to generalized volume loss. Extracranial Structures: Arterial flow voids in the skull base are present. Procedure Note Artis Gaitan MD - 09/22/2022 MRI BRAIN WITHOUT CONTRAST TECHNIQUE: MRI BRAIN WITHOUT CONTRAST Multi-sequence, multi-planar MRI of the brain was performed withoutintravenous contrast. COMPARISON: Head CT 09/24/2020. FINDINGS: Brain Parenchyma: No evidence of acute infarct, mass lesion, or recenthemorrhage. Punctate focus of susceptibility effect in the anterior leftfrontal lobe on 9:59, stable since 2020, likely a clinically significanttiny old microhemorrhage. Hippocampal volumes are not well assessed in theabsence of coronal images. Ventricular System and Extra-Axial Spaces: Mild generalized parenchymalvolume loss Mild diffuse prominence of the lateral ventricles, withouttransependymal edema or morphologic evidence of normal pressurehydrocephalus, likely related to generalized volume loss. Extracranial Structures: Arterial flow voids in the skull base arepresent. IMPRESSION: No intracranial mass or other focal cause for the reported symptomsidentified. No definite evidence of a regional brain parenchymal volume losspattern. us Endy Negrete MD IMG MR HEAD/NECK Final Resul t documented in this encounter Visit Diagnoses Diagnosis Ataxia- Primary Lack of coordination Memory loss Ataxia Lack of coordination Memory loss documented in this encounter Additional Health Concerns Infection Onset Date Last Indicated Resolved Time CoV-Risk Comment:Per note documentation 12/22/2023 12/22/2023 4 12:38 PM EDT Assessment Noted Time PHQ-9 Depression Total Score: 11 022 2:53 PM EDT PHQ-2 Depression Total Score: 1 04/26/20 22 2:53 PM EDT documented as of this encounter Care Teams Field Tech Relationship Specialty Start Date End Date Ashely Tovar MD [email or web address] PCP - General Family Medicine 08/19/18 09/12/22 Nirav Razo MD [address] [place] [place] [address] 7 [place] [address] PCP - General Family Medicine 09/13/22 04/26/23 Alexus Gandhi [address] [place] [address], [address] [place] [address] [email or web address] PCP - General Family Medicine 04/27/23 Rosamaria Gunderson MD Consulting Provider Geriatric Medicine 12/29/21 Cedrick Giles DO [address] [place] [place] [address] 7 [place] [address] [email or web address] Insurance Assigned Provider 09/02/22 09/29/23 Alexus Gandhi [address] [place] [address], [address] [place] [address] [email or web address] Insurance Assigned Provider 09/29/23 Brissa Díaz, OT [address] [place] [address] [email or web address] Transitions Steam Shovel OilerPizza Chef Therapy 12/24/2301/30/24 Rosamaria Gunderson MD Geriatric Medicine 04/28/24 documented as of this encounter Additional Source Comments The information contained in this document represents components of the legal health record. It is not the complete legal health record.[facility]
--- OUTSIDE RECORDS SUMMARY | 2025-03-03 10:23 | XMS_ITS | Encounter Summary ---
Author Organization [facility] Address [address] [place] [address] Phone Care Team Providers Care Supply Chain Vice President Name Role Phone Rosamaria Gunderson MD Unavailable [phone] Cedrick Giles DO Unavailable Nirav Razo MD Primary Care Provider Alexus Gandhi Primary Care Provider Alexus Gandhi Unavailable [phone] Brissa Díaz OT Unavailable [phone] Rosamaria Gunderson MD Unavailable [phone] Encounter Details Date Type Department Care Team (Late st Contact Info) Description 04/01/2023 Procedure Pass [facility], Ct Scan - [address] [address] Social History Tobacco Use Types Packs/Day Years Used Date Smoking Tobacco: Never Smokeless Tobacco: Never Alcohol Use Standard Drinks/Week Comments Yes 2 (1 standard drink = 0.6 oz pur e alcohol) even less now Education Answer Date Recorded Are you interested [...] Date of Assessment Author No Risk Indicated 04/01/2023 3:15 PM EDT Altaf Guadarrama RN * [place] Suicide Severity Rating Scale (Screener/Recent Self-Report) Question Answer Date of Assessment Author 1. Wish to be (Past 1 Month) No 023 3:15 PM EDT Altaf Betancur RN 2. Non-Specific Active Suici david Thoughts (Past 1 Month) No 04/01/2023 3:15 PM EDT Fernando Betancur RN 6. Suicidal Behavior (Lifetime) No 3 3:15 PM EDT Altaf Betancur RN documented as of this encounter Plan [...] documented as of this encounter Care Teams Supply Chain Vice President Relationship Specialty Start Date End Date Nirav Razo MD [address] [place] [address], [address] [place] [address] PCP - General Family Medicine 09/13/22 04/26/23 Marquis-Alexus Bhagat [address] [place] [address], [address] [place] [address] [email or web address] PCP - General Family Medicine 04/27/23 Rosamaria Gunderson MD Consulting Provider Geriatric Medicine 12/29/21 Cedrick Giles DO [address] [place] [address], [address] [place] [address] Insurance Assigned Provider 09/02/22 09/29/23 Alexus Gandhi [address] [place] [address], [address] [place] [address] [email or web address] Insurance Assigned Provider 09/29/23 Brissa Díaz, OT [address] [place] [address] Transitions Facility Service ManagerDistillation Operator Helper Therapy 12/24/2301/30/24 Rosamaria Gunderson MD Geriatric Medicine 04/28/24 documented as of this encounter Additional Source Comments The information contained in this document represents components of the legal health record. It is not the complete legal health record.[facility]
--- OUTSIDE RECORDS SUMMARY | 2025-03-03 10:23 | XMS_ITS | Encounter Summary ---
Author Organization [facility] Address [address] [place] [address] Phone Care Team Providers Care Mangle Catcher Name Role Phone Ashely Tovar MD Primary Care Provider Ashely Tovar MD Unavailable [phone] Rosamaria Gunderson MD Unavailable Cedrick Giles DO Unavailable Nirav Razo MD Primary Care Provider Alexus Gandhi Primary Care Provider [phone] Alexus Gandhi Unavailable [phone] Brissa Díaz OT Unavailable [phone] Rosamaria Gunderson MD Unavailable Encounter Details Date Type Department Care Team (Late st Contact Info) Description 02/07/2022 Procedure Pass [facility], Ct Scan - [address] [id number] Social History Tobacco Use Types Packs/Day Years [...] 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 Not on file No t on file documented as of this encounter Plan of Treatment Not on file documented as of this encounter Visit Diagnoses Not on filedocumented in this encounter Additional Health Concerns Infection Onset Date Last Indicated Resolved Time CoV-Risk Comment:Per note documentation 12/22/2023 12/22/2023 12:38 PM EDT Assessment Noted Time PHQ-9 Depression Total Score: 10 022 1:26 PM EDT PHQ-2 Depression Total Score: 2 12/08/19 22 1:26 PM EDT documented as of this encounter Care Teams Mangle Catcher Relationship Specialty Start Date End Date Ashely Tovar MD [email or web address] PCP - General Family Medicine 08/19/18 09/12/22 Nirav Razo MD [address] [place] [address], [address] [place] [address] [email or web address] PCP - General Family Medicine 09/13/22 04/26/23 Alexus Gandhi [address] [place] [address], [address] [place] [address] [email or web address] PCP - General Family Medicine 04/27/23 Ashely Tovar MD [address] [place] [address] [email or web address] Insurance Assigned Provider 10/01/19 09/02/22 Rosamaria Gunderson MD [address] [place] [address] [email or web address] Consulting Provider Geriatric Medicine 12/29/21 Cedrick Giles DO [address] [place] [address], [address] [place] [address] [email or web address] Insurance Assigned Provider 09/02/22 09/29/23 Alexus Gandhi [address] [place] [address], [address] [place] [address] [email or web address] Insurance Assigned Provider 09/29/23 Brissa Díaz, OT [address] [place] [address] [email or web address] Transitions Green Meat PackerShellfish Weigher Therapy 12/24/2301/30/24 Rosamaria Gunderson MD [address] [place] [address] [email or web address] Geriatric Medicine 04/28/24 documented as of this encounter Additional Source Comments The information contained in this document represents components of the legal health record. It is not the complete legal health record.[facility]
--- OUTSIDE RECORDS SUMMARY | 2025-03-03 10:23 | XMS_ITS | Encounter Summary ---
Author Organization [facility] Address [address] [place] [address] Phone Care Team Providers Care Scraper Operator Name Role Phone Ashely Tovar MD Primary Care Provider [phone] Ashely Tovar MD Unavailable [phone] Jose Schulte OT Unavailable Rosamaria Gunderson MD Unavailable [phone] Cedrick Giles DO Unavailable Nirav Razo MD Primary Care Provider Alexus Gandhi Primary Care Provider [phone] Alexus Gandhi Unavailable [phone] Brissa Díaz OT Unavailable [phone] Rosamaria Gunderson MD Unavailable [phone] Encounter Details Date Type Department Care Team (Late st Contact Info) Description 09/24/2020 Procedure Pass [facility], Ct Scan - [address] [address] Social History Tobacco Use Types Packs/Day Years [...] Date 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 Date 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 PCP - General Family Medicine 04/27/23 Ashely Tovar MD [address] [place] [address] [email or web address] Insurance Assigned Provider 10/01/19 09/02/22 Jose Schulte, OT [address] [place] [address] [email or web address] Transitions Loss Control TechnicianClinical Engineer Therapy 09/22/2009/26/20 Rosamaria Gunderson MD [address] [place] [address] [email or web address] Consulting Provider Geriatric Medicine 12/29/21 Cedrick Giles DO [address] [place] [address], [address] [place] [address] Insurance Assigned Provider 09/02/22 09/29/23 Alexus Gandhi 22 [facility], [address] [place] [address] [email or web address] Insurance Assigned Provider 09/29/23 Brissa Díaz, OT [address] [place] [address] [email or web address] Transitions Loss Control TechnicianClinical Engineer Therapy 12/24/2301/30/24 Rosamaria Gunderson MD [address] [place] [address] Geriatric Medicine 04/28/24 documented as of this encounter Additional Source Comments The information contained in this document represents components of the legal health record. It is not the complete legal health record.[facility]
--- OUTSIDE RECORDS SUMMARY | 2025-03-03 10:23 | XMS_ITS | Encounter Summary ---
Author Organization [facility] Address [address] [place] [address] Phone Care Team Providers Care Foundry Hand Name Role Phone Ashely Tovar MD Primary Care Provider [phone] Ashely Tovar MD Unavailable [phone] Jose Schulte OT Unavailable [phone] Rosamaria Gunderson MD Unavailable [phone] Cedrick Giles DO Unavailable Nirav Razo MD Primary Care Provider Alexus Gandhi Primary Care Provider [phone] Alexus Gandhi Unavailable [phone] Brissa Díaz OT Unavailable [phone] Rosamaria Gunderson MD Unavailable [phone] Encounter Details Date Type Department Care Team (Late st Contact Info) Description 11/20/2018 Procedure Pass [facility] Admitting Dept Virtual Department 30 [place] [address] Social History Tobacco Use Types Packs/Day Years [...] documented as of this encounter Care Teams Foundry Hand Relationship Specialty Start Date End Date Ashely Tovar MD [email or web address] PCP - General Family Medicine 08/19/18 09/12/22 Nirav Razo MD [address] [place] [address], [address] [place] [address] [email or web address] PCP - General Family Medicine 09/13/22 04/26/23 Alexus Gandhi [address] [place] [address], [address] [place] [address] [email or web address] PCP - General Family Medicine 04/27/23 Ashely Tovar MD [address] [place] [address] [email or web address] Insurance Assigned Provider 10/01/19 09/02/22 Jose Schulte, OT [address] [place] [address] [email or web address] Transitions Sailing OfficerBuilding Services Coordinator Therapy 09/22/2009/26/20 Rosamaria Gunderson MD 10 [place] [address] Consulting Provider Geriatric Medicine 12/29/21 Cedrick Giles DO [address] [place] [address], [address] [place] [address] Insurance Assigned Provider 09/02/22 09/29/23 Alexus Gandhi 22 [facility], [address] [place] [address] [email or web address] Insurance Assigned Provider 09/29/23 Brissa Díaz, OT [address] [place] [address] [email or web address] Transitions Sailing OfficerBuilding Services Coordinator Therapy 12/24/2301/30/24 Rosamaria Gunderson MD 10 [place] [address] Geriatric Medicine 04/28/24 documented as of this encounter Additional Source Comments The information contained in this document represents components of the legal health record. It is not the complete legal health record.[facility]
--- OUTSIDE RECORDS SUMMARY | 2025-03-03 10:23 | XMS_ITS | Encounter Summary ---
Author Organization [facility] Address [address] [place] [address] Phone Care Team Providers Care Geriatrician Name Role Phone Ashely Tovar MD Primary Care Provider [phone] Ashely Tovar MD Unavailable [phone] Jose Schulte OT Unavailable Rosamaria Gunderson MD Unavailable [phone] Cedrick Giles DO Unavailable Nirav Razo MD Primary Care Provider Alexus Gandhi Primary Care Provider [phone] Alexus Gandhi Unavailable [phone] Brissa Díaz OT Unavailable [phone] Rosamaria Gunderson MD Unavailable [phone] Encounter Details Date Type Department Care Team (Late st Contact Info) Description 07/09/2020 Procedure Pass [facility], Ct Scan - [address] [address] Social History Tobacco Use Types Packs/Day Years [...] Job 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 Wish to be (Past 1 Month) No 021 3:06 PM Roula Treviño RN 2. Non-Specific Active Suici david Thoughts (Past 1 Month) No 07/09/2020 3:06 PM Tobin Terviño RN 6. Suicidal Behavior (Lifetime) No 3:06 [...] documented as of this encounter Care Teams Geriatrician Relationship Specialty Start Date End Date Ashely Tovar MD [email or web address] PCP - General Family Medicine 08/19/18 09/12/22 Nirav Razo MD [address] [place] [address] 7 [place] [address] [email or web address] PCP - General Family Medicine 09/13/22 04/26/23 Alexus Gandhi [address] [place] [address], [address] [place] [address] [email or web address] PCP - General Family Medicine 04/27/23 Ashely Tovar MD [address] [place] [address] [email or web address] Insurance Assigned Provider 10/01/19 09/02/22 Jose Schulte, OT 10 [place] [address] [email or web address] Transitions Tie ManPatient Service Rep Therapy 09/22/2009/26/20 Rosamaria Gunderson MD [address] [place] [address] [email or web address] Consulting Provider Geriatric Medicine 12/29/21 Cedrick Giles DO [address] [place] [address], [address] [place] [address] [email or web address] Insurance Assigned Provider 09/02/22 09/29/23 Alexus Gandhi [address] [place] [address], [address] [place] [address] [email or web address] Insurance Assigned Provider 09/29/23 Brissa Díaz, OT 30 [place] [address] [email or web address] Transitions Tie ManPatient Service Rep Therapy 12/24/2301/30/24 Rosamaria Gunderson MD [address] [place] [address] Geriatric Medicine 04/28/24 documented as of this encounter Additional Source Comments The information contained in this document represents components of the legal health record. It is not the complete legal health record.[facility]
--- OUTSIDE RECORDS SUMMARY | 2025-03-03 10:23 | XMS_ITS | Encounter Summary ---
Author Organization [facility] Address [address] [place] [address] Phone Care Team Providers Care Clothing Man Name Role Phone Rosamaria Gunderson MD Unavailable [phone] Cedrick Giles DO Unavailable Nirav Razo MD Primary Care Provider Alexus Gandhi Primary Care Provider Alexus Gandhi Unavailable [phone] Brissa Díaz OT Unavailable [phone] Rosamaria Gunderson MD Unavailable [phone] Encounter Details Date Type Department Care Team (Late st Contact Info) Description 02/09/2023 Procedure Pass [facility], Ct Scan - [address] [address] Social History Tobacco Use Types Packs/Day Years [...] Job Start Date 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 PCP - General Family Medicine 04/27/23 Rosamaria Gunderson MD Consulting Provider Geriatric Medicine 12/29/21 Cedrick Giles DO [address] [place] [address], [facility] 7 [place] [address] Insurance Assigned Provider 09/02/22 09/29/23 Alexus Gandhi [address] [place] [address], [address] [place] [address] [email or web address] Insurance Assigned Provider 09/29/23 Brissa Díaz, OT [address] [place] [address] [email or web address] Transitions Combat ControlPublic Works Technician Therapy 12/24/2301/30/24 Rosamaria Gunderson MD [email or web address] Geriatric Medicine 04/28/24 documented as of this encounter Additional Source Comments The information contained in this document represents components of the legal health record. It is not the complete legal health record.[facility]
--- OUTSIDE RECORDS SUMMARY | 2025-03-03 10:23 | XMS_ITS | Encounter Summary ---
Author Organization [facility] Address [address] [place] [address] Phone Care Team Providers Care Civil Engineer Helper Name Role Phone Rosamaria Gunderson MD Unavailable [phone] Alexus Gandhi Primary Care Provider Alexus Gandhi Unavailable [phone] Brissa Díaz OT Unavailable [phone] Rosamaria Gunderson MD Unavailable [phone] Encounter Details Date Type Department Care Team (Late st Contact Info) Description 12/22/2023 Procedure Pass [facility], Ct Scan - [address] [address] Social History Tobacco Use Types Packs/Day Years [...] Job Start Date Job 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 PCP - General Family Medicine 04/27/23 Rosamaria Gunderson MD [email or web address] Consulting Provider Geriatric Medicine 12/29/21 Alexus Gandhi [address] [place] [address], [address] [address] [email or web address] Insurance Assigned Provider 09/29/23 Brissa Díaz, OT [address] [place] [address] [email or web address] Transitions American Sign Language TeacherPrinter Maintainer Therapy 12/24/2301/30/24 Rosamaria Gunderson MD [email or web address] Geriatric Medicine 04/28/24 documented as of this encounter Additional Source Comments The information contained in this document represents components of the legal health record. It is not the complete legal health record.[facility]
--- OUTSIDE RECORDS SUMMARY | 2025-03-03 10:23 | XMS_ITS | Encounter Summary ---
Author Organization [facility] Address [address] [place] [address] Phone Care Team Providers Care Boat Hop Name Role Phone Ashely Tovar MD Primary Care Provider [phone] Rosamaria Gunderson MD Unavailable [phone] Cedrick Giles DO Unavailable Nirav Razo MD Primary Care Provider [phone] Alexus Gandhi Primary Care Provider Alexus Gandhi Unavailable [phone] Brissa Díaz OT Unavailable [phone] Rosamaria Gunderson MD Unavailable [phone] Encounter Details Date Type Department Care Team (Late st Contact Info) Description 09/08/2022 Procedure Pass [facility], [facility] - [address] [place] [address] Social History Tobacco Use Types Packs/Day Years [...] Job 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 PCP - General Family Medicine 04/27/23 Rosamaria Gunderson MD Consulting Provider Geriatric Medicine 12/29/21 Cedrick Giles DO [address] [facility] 7 [place] [address] [email or web address] Insurance Assigned Provider 09/02/22 09/29/23 Alexus Gandhi [address] [place] [address], [address] [place] [address] [email or web address] Insurance Assigned Provider 09/29/23 Brissa Díaz, OT [address] [place] [address] [email or web address] Transitions Day Habilitation SupervisorThroat Cutter Therapy 12/24/2301/30/24 Rosamaria Gunderson MD [email or web address] Geriatric Medicine 04/28/24 documented as of this encounter Additional Source Comments The information contained in this document represents components of the legal health record. It is not the complete legal health record.[facility]
--- OUTSIDE RECORDS SUMMARY | 2025-03-03 10:23 | XMS_ITS | Encounter Summary ---
Author Organization [facility] Address [address] [place] [address] Phone Care Team Providers Care Care Provider Name Role Phone Rosamaria Gunderson MD Unavailable [phone] Alexus Gandhi Primary Care Provider [phone] Alexus Gandhi Unavailable [phone] Brissa Díaz OT Unavailable [phone] Rosamaria Gunderson MD Unavailable [phone] Encounter Details Date Type Department Care Team (Late st Contact Info) Description 12/24/2023 Procedure Pass [facility] Admitting Dept Virtual Department [address] [place] [address] Social History Tobacco Use Types Packs/Day Years [...] Job Start Date 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 PCP - General Family Medicine 04/27/23 Rosamaria Gunderson MD Consulting Provider Geriatric Medicine 12/29/21 Alexus Gandhi [address] [place] [address], [address] [place] [address] [email or web address] Insurance Assigned Provider 09/29/23 Brissa Díaz, OT [address] [place] [address] Transitions Construction Sales ManagerFlight Attendant/Inflight Manager Therapy 12/24/2301/30/24 Rosamaria Gunderson MD Geriatric Medicine 04/28/24 documented as of this encounter Additional Source Comments The information contained in this document represents components of the legal health record. It is not the complete legal health record.[facility]
--- OUTSIDE RECORDS SUMMARY | 2025-03-03 10:23 | XMS_ITS | Encounter Summary ---
Author Organization [facility] Address [address] [place] [address] Phone Care Team Providers Care Co Pilot Name Role Phone Rosamaria Gunderson MD Unavailable Cedrick Giles DO Unavailable Nirav Razo MD Primary Care Provider Alexus Gandhi Primary Care Provider Alexus Gandhi Unavailable [phone] Brissa Díaz OT Unavailable [phone] Rosamaria Gunderson MD Unavailable [phone] Encounter Details Date Type Department Care Team (Late st Contact Info) Description 02/09/2023 Procedure Pass [facility], Ct Scan - [address] [address] Social History Tobacco Use Types Packs/Day Years [...] 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 PCP - General Family Medicine 04/27/23 Rosamaria Gunderson MD Consulting Provider Geriatric Medicine 12/29/21 Cedrick Giles DO [address] [place] [address], [facility] 7 [place] [address] Insurance Assigned Provider 09/02/22 09/29/23 Alexus Gandhi [address] [place] [address], [address] [place] [address] [email or web address] Insurance Assigned Provider 09/29/23 Brissa Díaz, OT [address] [place] [address] [email or web address] Transitions Income Tax PreparerPearl Technician Therapy 12/24/2301/30/24 Rosamaria Gunderson MD [email or web address] Geriatric Medicine 04/28/24 documented as of this encounter Additional Source Comments The information contained in this document represents components of the legal health record. It is not the complete legal health record.[facility]
--- OUTSIDE RECORDS SUMMARY | 2025-03-03 10:23 | XMS_ITS | Encounter Summary ---
Author Organization [facility] Address [address] [place] [address] Phone Care Team Providers Care Sports Book Server Name Role Phone Rosamaria Gunderson MD Unavailable Cedrick Giles DO Unavailable Nirav Razo MD Primary Care Provider Alexus Gandhi Primary Care Provider Alexus Gandhi Unavailable [phone] Brissa Díaz OT Unavailable [phone] Rosamaria Gunderson MD Unavailable [phone] Encounter Details Date Type Department Care Team (Late st Contact Info) Description 04/01/2023 Procedure Pass [facility], Ct Scan - [address] [address] Social History Tobacco Use Types Packs/Day Years [...] Job 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 Not on file No t on file documented as of this encounter Functional Status * Calculated C-SSRS Risk Score (Lifetime/Recent) Answer Date of Assessment Author No Risk Indicated 04/01/2023 3:15 PM EDT Altaf Guadarrama RN * [place] Suicide Severity Rating Scale (Screener/Recent Self-Report) Question [...] documented as of this encounter Care Teams Sports Book Server Relationship Specialty Start Date End Date Nirav Razo MD [address] [place] [address], [address] [place] [address] PCP - General Family Medicine 09/13/22 04/26/23 Marquis-Alexus Bhagat [address] [place] [address], [address] [place] [address] [email or web address] PCP - General Family Medicine 04/27/23 Rosamaria Gunderson MD Consulting Provider Geriatric Medicine 12/29/21 Cedrick Giles DO [address] [place] [address], [address] [place] [address] Insurance Assigned Provider 09/02/22 09/29/23 Alexus Gandhi [address] [place] [address], [address] [place] [address] [email or web address] Insurance Assigned Provider 09/29/23 Brissa Díaz, OT [address] [place] [address] Transitions Rooming House KeeperAntique Automobiles Repairer Therapy 12/24/2301/30/24 Rosamaria Gunderson MD Geriatric Medicine 04/28/24 documented as of this encounter Additional Source Comments The information contained in this document represents components of the legal health record. It is not the complete legal health record.[facility]
--- OUTSIDE RECORDS SUMMARY | 2025-03-03 10:23 | XMS_ITS | Encounter Summary ---
Author Organization [facility] Address [address] [place] [address] Phone Care Team Providers Care Lean Specialist Name Role Phone Ashely Tovar MD Primary Care Provider [phone] Ashely Tovar MD Unavailable [phone] Jose Schulte OT Unavailable [phone] Rosamaria Gunderson MD Unavailable [phone] Cedrick Giles DO Unavailable Nirav Razo MD Primary Care Provider Alexus Gandhi Primary Care Provider [phone] Alexus Gandhi Unavailable [phone] Brissa Díaz OT Unavailable [phone] Rosamaria Gunderson MD Unavailable [phone] Encounter Details Date Type Department Care Team (Late st Contact Info) Description 07/09/2020 Procedure Pass [facility], Ct Scan - [address] [address] Social History Tobacco Use Types Packs/Day Years [...] Date Job 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 Date 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 Not on file No t on file documented as of this encounter Functional Status * Calculated C-SSRS Risk Score (Lifetime/Recent) Answer Date of Assessment Author No Risk Indicated 07/09/2020 3:06 PM EST Roula Messina RN * [place] Suicide Severity Rating Scale (Screener/Recent Self-Report) Question [...] documented as of this encounter Care Teams Lean Specialist Relationship Specialty Start Date End Date Ashely Tovar MD [email or web address] PCP - General Family Medicine 08/19/18 09/12/22 Nirav Razo MD [address] [place] [address] [address] [place] [address] [email or web address] PCP - General Family Medicine 09/13/22 04/26/23 Alexus Gandhi [address] [place] [address], [address] [place] [address] [email or web address] PCP - General Family Medicine 04/27/23 Ashely Tovar MD [address] [place] [address] [email or web address] Insurance Assigned Provider 10/01/19 09/02/22 Jose Schulte, OT [address] [place] [address] [email or web address] Transitions Cordage Sales RepresentativeMachine Gunner Therapy 09/22/2009/26/20 Rosamaria Gunderson MD [address] [place] [address] [email or web address] Consulting Provider Geriatric Medicine 12/29/21 Cedrick Giles DO [address] [place] [address], [address] [place] [address] [email or web address] Insurance Assigned Provider 09/02/22 09/29/23 Alexus Gandhi [address] [place] [address], [address] [place] [address] [email or web address] Insurance Assigned Provider 09/29/23 Brissa Díaz, OT [address] [place] [address] [email or web address] Transitions Cordage Sales RepresentativeMachine Gunner Therapy 12/24/2301/30/24 Rosamaria Gunderson MD [address] [place] [address] Geriatric Medicine 04/28/24 documented as of this encounter Additional Source Comments The information contained in this document represents components of the legal health record. It is not the complete legal health record.[facility]
--- NOTE | 2025-03-03 10:40 | PC.NURSE ---
report to junito at [facility]
[2025-03-03 11:09] VITALS: BP 110/77; PULSE 79; RESP 18; TEMP 36.9; O2SAT 95
== END 2025-03-03 11:10 | disposition home or self-care (01) ==
PROVIDERS: Emergency Provider Emergency Medicine
DX: N47.1 Phimosis (principal)
CPT/HCPCS: 99282; 99284